=== PATIENT | male | born 1985 | race Caucasian/White ===

== ENCOUNTER 2016-11-22 16:44 | Inpatient (IN) | payer OTHER ==
[2016-11-22 19:09] VITALS: BMI 24.8
--- NOTE | 2016-11-22 20:52 | HP ---
COWS - Scale Resting Pulse: 2= [place] 101-120 Sweatin= Chills/Flushing Restless Observation: 3= Extraneous Movement Pupil Size: 0= Normal to Room Light Bone or Joint Aches: 2= Severe Diffuse Aches Runny Nose/ Eye Tearin= Runny Nose/Eyes GI Upset > 30mins: 2= Nausea/Diarrhea Tremor Observation: 1= Tremor Sie[place], Not Seen Yawning Observation: 1= 1-2x During Session Anxiety or Irritability: 2=Irritable/Anxious Goose Flesh Skin: 3=Piloerection COWS Score: 19 CIWA Score - CIWA Score Nausea/Vomitin-Mild Nausea/No Vomiting Muscle Tremors: 3 Anxiety: 3 Agitation: 3 Paroxysmal Sweats: 3 Orientation: 1-Uncertain about Date Tacttile Disturbances: 0-None Auditory Disturbances: 0-None Visual Disturbances: 0-None Headache: 1-Very Mild CIWA-Ar Total Score: 15 Admission ROS S - HPI Chief Complaint: WITHDRAWAL SYMPTOMS Allergies/Adverse Reactions: Allergies Allergy/AdvReac Type Severity Reaction Status Date / Time Sulfa (Sulfonamide Allergy Intermediate Rash Verified 10/04/16 15:45 Antibiotics) History of Present Illness: 31 Y.O. MAN WITH A 9 YR HISTORY OF DRUG AND ALCOHOL DEPENDENCE IS SEEKING DETOX. HE WAS WAS HERE IN 09/2016 FOR DETOX BUT DID NOT COMPLETE TREATMENT. HE REPORTS HE DOES DOES HAVE A SIGNIFICANT PERIOD OF SOBRIETY. Exam Limitations: No Limitations - Ebola screening Have you traveled outside of the country in the last 21 days: No Have you had contact with anyone from an Ebola affected area: No Have you been sick,other than usual withdrawal symptoms: No Do you have a fever: No - Review of Systems Constitutional: Chills, Diaphoresis, Loss of Appetite, Night Sweats, Changes in sleep, Weakness, Unintentional Wgt. Loss EENT: reports: No Symptoms Reported Respiratory: reports: No Symptoms reported Cardiac: reports: No Symptoms Reported GI: reports: Other (HX CROHNS DISEASE) : reports: No Symptoms Reported Musculoskeletal: reports: Back Pain Integumentary: reports: No Symptoms Reported Neuro: reports: Tremors Endocrine: reports: No Symptoms Reported Hematology: reports: No Symptoms Reported Psychiatric: reports: Depressed Other Systems: Reviewed and Negative Patient History - Patient Medical History Hx Anemia: No Hx Asthma: No Hx Chronic Obstructive Pulmonary Disease (COPD): No Hx Cancer: No Hx Cardiac Disorders: No Hx Congestive Heart Failure: No Hx Hypertension: No Hx Hypercholesterolemia: No Hx Pacemaker: No HX Cerebrovascular Accident: No Hx Seizures: Yes (DRUG WITHDRAWAL SX RELATED) Hx Dementia: No Hx Diabetes: No Hx Gastrointestinal Disorders: Yes (HX CROHN'S DISEASE) Hx Liver Disease: No Hx Genitourinary Disorders: No Hx Sexually Transmitted Disorders: No Hx Renal Disease (ESRD): No Hx Thyroid Disease: No Hx Human Immunodeficiency Virus (HIV): No (negative) Hx Hepatitis C: No (negative) Hx Depression: Yes Hx Suicide Attempt: No (DENIES) Hx Bipolar Disorder: No Hx Schizophrenia: No - Patient Surgical History Past Surgical History: Yes Hx Neurologic Surgery: No Hx Cataract Extraction: No Hx Cardiac Surgery: No Hx Lung Surgery: No Hx Breast Surgery: No Hx Breast Biopsy: No Hx Abdominal Surgery: Yes (BOWEL RESECTION IN 2011 for crohn's disease) Hx Appendectomy: No Hx Cholecystectomy: No Hx Genitourinary Surgery: No Hx Section: No Hx Orthopedic Surgery: Yes (FRACTURED LEFT LEG BONES SEC. TO FALL IN 06/2014) Anesthesia Reaction: No - PPD History Previous Implant?: Yes Documented Results: Negative w/proof Implanted On Prior R Admission?: Yes Date: 02/03/16 Results: 0 mm PPD to be Administered?: No - Smoking Cessation Smoking history: Current every day smoker Have you smoked in the past 12 months: Yes Aproximately how many cigarettes per day: 10 Cigars Per Day: 0 Hx Chewing Tobacco Use: No Initiated information on smoking cessation: Yes 'Breaking Loose' booklet given: 11/22/16 - Substance & Tx. History Hx Alcohol Use: Yes Hx Substance Use: Yes Substance Use Type: Alcohol, Heroin, Tranquilizers Hx Substance Use Treatment: Yes (DETOX AND REHAB ) - Substances Abused Alprazolam (Xanax) Route: Oral Frequency: 3-6 times per week Amount used: 4MG Age of first use: 27 Date of Last Use: 11/21/16 Heroin Route: Injection Frequency: Daily Amount used: 2-3 BUNDLES Age of first use: 29 Date of Last Use: 11/22/16 Alcohol Route: Oral Frequency: 3-6 times per week Amount used: 1 6-PACK Age of first use: 24 Date of Last Use: 11/20/16 Family Disease History - Family Disease History Family Disease History: Diabetes: Grandparent, Heart Disease: Grandparent, Respiratory: Father (STOPPED USING ETOH AND COCAINE), Other: Father Admission Physical Exam [facility] - Vital Signs Vital Signs: Vital Signs - 24 hr 11/22/16 19:03 Temperature 97.6 F Pulse Rate 108 H Respiratory 20 Rate Blood Pressure 126/78 - Physical General Appearance: Yes: Disheveled, Tremorous, Irritable, Sweating, Anxious HEENTM: Yes: Hearing grossly Normal, Normal ENT Inspection, Normocephalic Respiratory: Yes: Chest Non-Tender, Lungs Clear, Normal Breath Sounds Neck: Yes: No masses,lesions,Nodules, Trachea in good position Breast: Yes: Breast Exam Deferred Cardiology: Yes: Regular Rhythm, S1, S2, Tachycardia Abdominal: Yes: Normal Bowel Sounds, Non Tender, Flat, Soft Genitourinary: Yes: Within Normal Limits Back: Yes: Normal Inspection Musculoskeletal: Yes: Back pain, Muscle Pain Extremities: Yes: Normal Capillary Refill, Normal Inspection, Normal Range of Motion, Non-Tender Neurological: Yes: Alert, Normal Mood/Affect, Normal Response Integumentary: Yes: Normal Color, Dry, Warm, Track [place] Lymphatic: Yes: Within Normal Limits - Diagnostic (1) Alcohol dependence with uncomplicated withdrawal Current Visit: Yes Status: Chronic (2) Benzodiazepine dependence Current Visit: Yes Status: Chronic (3) Nicotine dependence Current Visit: Yes Status: Chronic Qualifiers: Nicotine product type: cigarettes Substance use status: uncomplicated Qualified Code(s): F17.210 - Nicotine dependence, cigarettes, uncomplicated (4) Opioid dependence with withdrawal Current Visit: Yes Status: Chronic (5) Crohns disease Current Visit: Yes Status: Chronic Qualifiers: Gastrointestinal tract location: small intestine Digestive disease complication type: unspecified complication Qualified Code(s): K50.019 - Crohn's disease of small intestine with unspecified complications Cleared for Admission [facility] - Detox or Rehab [facility] Level of Care: Medically Managed Detox Regimen/Protocol: Methadone/Valium [facility] Breath Alcohol Content Breath Alcohol Content: 0 Urine Drug Screen - Results Urine Drug Screen Results: THC-Marijuana, OPI-Opiates, BZO-Benzodiazepines
[2016-11-22] MEDS ORDERED: IBUPROFEN 400 MG TABLET (FP) PO PRN (21:03)
[2016-11-22] MEDS ORDERED: ACETAMINOPHEN 325 MG TABLET (FP) PO PRN (21:03)
[2016-11-22] MEDS ORDERED: MAG HYDROX/AL HYDROX/SIMETH 30 ML UNIT-DOSE CUP PO PRN (21:03)
[2016-11-22] MEDS ORDERED: guaiFENesin/D-METHORPHAN HB 10 ML UNIT-DOSE CUPS PO PRN (21:03)
[2016-11-22] MEDS ORDERED: MENTHOL/PHENOL 1 EACH UD MM PRN (21:03)
[2016-11-22] MEDS ORDERED: diazePAM 5 MG TABLET PO ONE (21:03)
[2016-11-22] MEDS ORDERED: METHADONE HCL 10 MG TABLET (FOR DETOX USE ONLY) PO ONE ×2 (21:03→23:00)
[2016-11-22] MEDS ORDERED: MAGNESIUM CITRATE 300 ML BOTTLE PO PRN (21:03)
[2016-11-22] MEDS ORDERED: diazePAM 5 MG TABLET PO PRN (21:03)
[2016-11-22] MEDS ORDERED: LOPERAMIDE HCL 2 MG CAPSULE PO PRN (21:03)
[2016-11-22] MEDS ORDERED: P-EPHED 60MG/TRIPROLIDI 2.5MG TABLET PO PRN (21:03)
[2016-11-22] MEDS ORDERED: MAGNESIUM HYDROX 2400MG/30ML ORAL SUSPENSION 30 ML CUP PO PRN (21:03)
[2016-11-22] MEDS ORDERED: diazePAM 5 MG TABLET PO SCH (22:00)
[2016-11-23] MEDS: diphenhydrAMINE HCL 50 MG CAPSULE PO PRN (00:39)
[2016-11-23] MEDS ORDERED: METHADONE HCL 10 MG TABLET (FOR DETOX USE ONLY) PO ONE ×3 (00:44→23:00)
[2016-11-23] MEDS ORDERED: diazePAM 5 MG TABLET PO ONE (00:44)
[2016-11-23] MEDS: THIAMINE HCL 100 MG TABLET (FP) PO SCH ×2 (00:59→22:07)
[2016-11-23] MEDS: diazePAM 5 MG TABLET PO SCH ×3 (05:38→22:07)
[2016-11-23] MEDS: diazePAM 5 MG TABLET PO PRN ×2 (09:25→17:25)
[2016-11-23] MEDS: PRENATAL VITAMINS W/ FOLIC ACID TABLET (FP) PO SCH (09:26)
[2016-11-23] MEDS: NICOTINE 14 MG/24 HOURS TOPICAL PATCH TD SCH (09:26)
[2016-11-23 09:56] LABS: MCH 21.6 pg (25.7-33.7); MCHC 32.3 g/dl (32.0-35.9); MEAN CELL VOLUME 66.8 fl (80-96); MEAN PLT VOLUME 7.1 fl (7.5-11.1); PLATELET COUNT 295 K/MM3 (134-434); RDW 18.7 % (11.9-15.9); WHITE BLOOD COUNT 8.1 K/mm3 (4.0-10.0)
[2016-11-23] MEDS ORDERED: METHADONE HCL 10 MG TABLET (FOR DETOX USE ONLY) PO SCH (10:00)
[2016-11-23 10:55] LABS: ALK PHOS 65 U/L (45-117); ANION GAP 8 (8-16); BILIRUBIN,TOTAL 0.3 mg/dL (0.2-1.0); CALCIUM 9.1 mg/dL (8.5-10.1); CO2 29 mmol/L (21-32); GLUCOSE,RANDOM 77 mg/dL (74-106); SGOT/AST 9 U/L (15-37); SGPT/ALT 14 U/L (12-78); TOT PROT 6.4 g/dl (6.4-8.2)
--- NOTE | 2016-11-23 11:48 | CONSULT ---
[facility] Psychiatric Consult - Data Date of interview: 11/23/16 Admission source: [facility] Identifying data: Readmission to [facility] for this 31 y/o male seeking detox treatment on for heroin,alcohol and benzodiazepine (xanax ) dependence.Patient is single without children,homeless,unemployed and reportedly deprived of any source of income. Substance Abuse History: - Smoking Cessation. Smoking history: Current every day smoker. Have you smoked in the past 12 months: Yes. Aproximately how many cigarettes per day: 10. Cigars Per Day: 0. Hx Chewing Tobacco Use: No. Initiated information on smoking cessation: Yes. 'Breaking Loose' booklet given : 11/22/16. - Substance & Tx. History. Hx Alcohol Use: Yes. Hx Substance Use : Yes. Substance Use Type: Alcohol, Heroin, Tranquilizers. Hx Substance Use Treatment: Yes (DETOX AND REHAB ). - Substances Abused. Alprazolam (Xanax) . Route: Oral. Frequency: 3-6 times per week. Amount used: 4MG. Age of first use: 27. Date of Last Use: 11/21/16. Heroin. Route: Injection. Frequency: Daily. Amount used: 2-3 BUNDLES. Age of first use: 29. Date of Last Use: 11/22/16. Alcohol. Route: Oral. Frequency: 3-6 times per week. Amount used: 1 6-PACK. Age of first use: 24. Date of Last Use: 11/20/16. Discussed with the patient in this interview.He confirmed this pattern of substance use. Medical History: Crohn's disease,anemia and a history of withdrawal-related seizures. Psychiatric History: Patient denies. Physical/Sexual Abuse/Trauma History: Patient denies. Mental Status Exam - Mental Status Exam Alert and Oriented to: Time, Place, Person Cognitive Function: Good Patient Appearance: Unkempt, Disheveled Mood: Nervous, Withdrawn, Anxious Affect: Mood Congruent Patient Behavior: Fatigued, Appropriate, Cooperative Speech Pattern: Clear Voice Loudness: Normal Thought Process: Goal Oriented Thought Disorder: Not Present Hallucinations: Denies Suicidal Ideation: Denies Homicidal Ideation: Denies Insight/Judgement: Poor Sleep: Poorly Appetite: Fair Muscle strength/Tone: Normal Gait/Station: Normal Psychiatric Findings - Problem List ([place] 1, 2,3) (1) Alcohol dependence with uncomplicated withdrawal Current Visit: Yes Status: Chronic (2) Benzodiazepine dependence Current Visit: Yes Status: Acute (3) Nicotine dependence Current Visit: Yes Status: Acute Qualifiers: Nicotine product type: cigarettes Substance use status: uncomplicated Qualified Code(s): F17.210 - Nicotine dependence, cigarettes, uncomplicated (4) Opioid dependence with withdrawal Current Visit: Yes Status: Acute (5) Drug-induced mood disorder Current Visit: Yes Status: Acute (6) Crohns disease Current Visit: Yes Status: Chronic Qualifiers: Gastrointestinal tract location: small intestine Digestive disease complication type: unspecified complication Qualified Code(s): K50.019 - Crohn's disease of small intestine with unspecified complications (7) History of seizure Current Visit: Yes Status: Chronic (8) Anemia Current Visit: Yes Status: Suspected (9) Substance-induced sleep disorder Current Visit: Yes Status: Chronic - Initial Treatment Plan Initial Treatment Plan: Psychoeducation.Detoxification.Zolpidem 10 mg po hs prn.Patient made aware of risk of parasomnias.He agrees with this plan.Observation.
--- NOTE | 2016-11-23 12:18 | PN ---
[facility] CIWA - CIWA Score Nausea/Vomitin-No Nausea/No Vomiting Muscle Tremors: 4-Moderate,w/Arms Extend Anxiety: 4-Mod. Anxious/Guarded Agitation: 4-Moderately Restless Paroxysmal Sweats: 1-Minimal Palms Moist Orientation: 0-Oriented Tacttile Disturbances: 3-Moderate Itch/Numb/Burn Auditory Disturbances: 0-None Visual Disturbances: 0-None Headache: 0-None Present CIWA-Ar Total Score: 16 S COWS - Scale Resting Pulse: 1= [place] 81-100 Sweatin= Chills/Flushing Restless Observation: 3= Extraneous Movement Pupil Size: 2= Moderately Dilated Bone or Joint Aches: 4=Acute Joint/Muscle Pain Runny Nose/ Eye Tearin= Nasal Congestion GI Upset > 30mins: 1= Stomach Cramp Tremor Observation of Outstretched Hands: 2= Slight Tremor Visible Yawning Observation: 1= 1-2x During Session Anxiety or Irritability: 2=Irritable/Anxious Goose Flesh Skin: 0=Smooth Skin COWS Score: 18 S Progress Note (SOAP) Subjective: ANXIETY,TREMORS,SWEATS,DIARRHEA,"ROUGH SLEEP'. Objective: 11/23/16 12:17 Vital Signs Temperature 97 F L 11/23/16 11:48 Pulse Rate 82 11/23/16 11:48 Respiratory Rate 20 11/23/16 11:48 Blood Pressure 106/66 11/23/16 11:48 O2 Sat by Pulse Oximetry (%) Laboratory Last Values WBC 8.1 K/mm3 (4.0-10.0) D 11/23/16 07:00 RBC 5.07 M/mm3 (4.00-5.60) 11/23/16 07:00 Hgb 11.0 GM/dL (11.7-16.9) L D 11/23/16 07:00 Hct 33.9 % (35.4-49) L D 11/23/16 07:00 MCV 66.8 fl (80-96) L 11/23/16 07:00 MCHC 32.3 g/dl (32.0-35.9) 11/23/16 07:00 RDW 18.7 % (11.9-15.9) H 11/23/16 07:00 Plt Count 295 K/MM3 (134-434) 11/23/16 07:00 MPV 7.1 fl (7.5-11.1) L D 11/23/16 07:00 Sodium 143 mmol/L (136-145) 11/23/16 07:00 Potassium 4.2 mmol/L (3.5-5.1) 11/23/16 07:00 Chloride 106 mmol/L (98-107) 11/23/16 07:00 Carbon Dioxide 29 mmol/L (21-32) D 11/23/16 07:00 Anion Gap 8 (8-16) 11/23/16 07:00 BUN 12 mg/dL (7-18) 11/23/16 07:00 Creatinine 1.0 mg/dL (0.7-1.3) 11/23/16 07:00 Creat Clearance w eGFR > 60 (>60) 11/23/16 07:00 Random Glucose 77 mg/dL (74-106) D 11/23/16 07:00 Calcium 9.1 mg/dL (8.5-10.1) 11/23/16 07:00 Total Bilirubin 0.3 mg/dL (0.2-1.0) D 11/23/16 07:00 AST 9 U/L (15-37) L 11/23/16 07:00 ALT 14 U/L (12-78) 11/23/16 07:00 Alkaline Phosphatase 65 U/L (45-117) 11/23/16 07:00 Total Protein 6.4 g/dl (6.4-8.2) 11/23/16 07:00 Albumin 3.0 g/dl (3.4-5.0) L 11/23/16 07:00 Assessment: 11/23/16 12:17 WITHDRAWAL SX Plan: CONTINUE DETOX IMODI[facility] PRN
[2016-11-23] MEDS: ZOLPIDEM TARTRATE 5 MG TABLET PO PRN (22:07)
--- NOTE | 2016-11-23 23:34 | EKG ---
Test Reason : Blood Pressure : / mmHG Vent. Rate : 075 BPM Atrial Rate : 075 BPM P-R Int : 136 ms QRS Dur : 086 ms QT Int : 384 ms P-R-T Axes : 056 076 059 degrees QTc Int : 428 ms NORMAL SINUS RHYTHM NORMAL ECG WHEN COMPARED WITH ECG OF 04-FEB-2016 13:56, NO SIGNIFICANT CHANGE WAS FOUND Confirmed by KEEGAN LAND MD ([id number]) on 11/23/2016 11:34:14 PM Referred By: Elsie Miller Confirmed By:KEEGAN LAND MD
[2016-11-24] MEDS: diazePAM 5 MG TABLET PO PRN ×4 (00:43→17:01)
[2016-11-24] MEDS: diphenhydrAMINE HCL 50 MG CAPSULE PO PRN (00:43)
[2016-11-24] MEDS: diazePAM 5 MG TABLET PO SCH ×3 (05:50→22:03)
[2016-11-24] MEDS ORDERED: METHADONE HCL 5 MG TABLET (FOR DETOX USE ONLY) PO SCH (10:00)
[2016-11-24] MEDS ORDERED: METHADONE HCL 10 MG TABLET (FOR DETOX USE ONLY) PO SCH (10:00)
[2016-11-24] MEDS ORDERED: diazePAM 5 MG TABLET PO SCH (10:00)
--- NOTE | 2016-11-24 10:19 | PN ---
[facility] CIWA - CIWA Score Nausea/Vomitin-No Nausea/No Vomiting Muscle Tremors: 5 Anxiety: 6 Agitation: 4-Moderately Restless Paroxysmal Sweats: 1-Minimal Palms Moist Orientation: 0-Oriented Tacttile Disturbances: 3-Moderate Itch/Numb/Burn Auditory Disturbances: 0-None Visual Disturbances: 0-None Headache: 0-None Present CIWA-Ar Total Score: 19 S COWS - Scale Resting Pulse: 0= [place] 80 or Below Sweatin= Chills/Flushing Restless Observation: 3= Extraneous Movement Pupil Size: 2= Moderately Dilated Bone or Joint Aches: 4=Acute Joint/Muscle Pain Runny Nose/ Eye Tearin= Nasal Congestion GI Upset > 30mins: 1= Stomach Cramp Tremor Observation of Outstretched Hands: 2= Slight Tremor Visible Yawning Observation: 1= 1-2x During Session Anxiety or Irritability: 2=Irritable/Anxious Goose Flesh Skin: 0=Smooth Skin COWS Score: 17 S Progress Note (SOAP) Subjective: ANXIETY,IRRITABILITY,AGITATION,RESTLESS,INTERMITTENT SLEEP. Objective: 11/24/16 10:16 Vital Signs Temperature 97 F L 11/24/16 09:31 Pulse Rate 80 11/24/16 09:31 Respiratory Rate 19 11/24/16 09:31 Blood Pressure 125/73 11/24/16 09:31 O2 Sat by Pulse Oximetry (%) Laboratory Last Values WBC 8.1 K/mm3 (4.0-10.0) D 11/23/16 07:00 RBC 5.07 M/mm3 (4.00-5.60) 11/23/16 07:00 Hgb 11.0 GM/dL (11.7-16.9) L D 11/23/16 07:00 Hct 33.9 % (35.4-49) L D 11/23/16 07:00 MCV 66.8 fl (80-96) L 11/23/16 07:00 MCHC 32.3 g/dl (32.0-35.9) 11/23/16 07:00 RDW 18.7 % (11.9-15.9) H 11/23/16 07:00 Plt Count 295 K/MM3 (134-434) 11/23/16 07:00 MPV 7.1 fl (7.5-11.1) L D 11/23/16 07:00 Sodium 143 mmol/L (136-145) 11/23/16 07:00 Potassium 4.2 mmol/L (3.5-5.1) 11/23/16 07:00 Chloride 106 mmol/L (98-107) 11/23/16 07:00 Carbon Dioxide 29 mmol/L (21-32) D 11/23/16 07:00 Anion Gap 8 (8-16) 11/23/16 07:00 BUN 12 mg/dL (7-18) 11/23/16 07:00 Creatinine 1.0 mg/dL (0.7-1.3) 11/23/16 07:00 Creat Clearance w eGFR > 60 (>60) 11/23/16 07:00 Random Glucose 77 mg/dL (74-106) D 11/23/16 07:00 Calcium 9.1 mg/dL (8.5-10.1) 11/23/16 07:00 Total Bilirubin 0.3 mg/dL (0.2-1.0) D 11/23/16 07:00 AST 9 U/L (15-37) L 11/23/16 07:00 ALT 14 U/L (12-78) 11/23/16 07:00 Alkaline Phosphatase 65 U/L (45-117) 11/23/16 07:00 Total Protein 6.4 g/dl (6.4-8.2) 11/23/16 07:00 Albumin 3.0 g/dl (3.4-5.0) L 11/23/16 07:00 RPR Titer Nonreactive (NONREACTIVE) 11/23/16 07:00 Hepatitis C Antibody >11.0 s/co ratio (0.0-0.9) H 11/23/16 07:00 LABS NOTED. PT TO F/U WITH HEP C RESULT WITH PMD AFTER DETOX. Assessment: 11/24/16 10:18 WITHDRAWAL SX Plan: CONTINUE DETOX
[2016-11-24] MEDS: NICOTINE 14 MG/24 HOURS TOPICAL PATCH TD SCH (10:21)
[2016-11-24] MEDS: PRENATAL VITAMINS W/ FOLIC ACID TABLET (FP) PO SCH (10:21)
[2016-11-24] MEDS: CYCLOBENZAPRINE HCL 10 MG TABLET (FP) PO SCH ×2 (13:52→22:03)
[2016-11-24 20:40] LABS: URINE APPEARANCE CLEAR; URINE BILIRUBIN NEGATIVE (NEGATIVE); URINE BLOOD NEGATIVE (NEGATIVE); URINE COLOR LTYELLOW; URINE GLUCOSE (UA) NEGATIVE (NEGATIVE); URINE KETONE NEGATIVE (NEGATIVE); URINE LEUK ESTERASE NEGATIVE (NEGATIVE); URINE NITRITE NEGATIVE (NEGATIVE); URINE PROTEIN NEGATIVE (NEGATIVE); URINE UROBILINOGEN NEGATIVE E.U./dl (0.2-1.0)
[2016-11-24] MEDS: THIAMINE HCL 100 MG TABLET (FP) PO SCH (22:02)
[2016-11-24] MEDS: ZOLPIDEM TARTRATE 5 MG TABLET PO PRN (22:03)
[2016-11-25] MEDS: diazePAM 5 MG TABLET PO PRN ×4 (05:32→20:45)
[2016-11-25] MEDS: CYCLOBENZAPRINE HCL 10 MG TABLET (FP) PO SCH ×3 (05:32→22:23)
[2016-11-25] MEDS: diazePAM 5 MG TABLET PO SCH ×2 (10:08→22:23)
[2016-11-25] MEDS: METHADONE HCL 5 MG TABLET (FOR DETOX USE ONLY) PO SCH (10:08)
[2016-11-25] MEDS: NICOTINE 14 MG/24 HOURS TOPICAL PATCH TD SCH (10:09)
[2016-11-25] MEDS: PRENATAL VITAMINS W/ FOLIC ACID TABLET (FP) PO SCH (10:09)
--- NOTE | 2016-11-25 10:15 | PN ---
[facility] Progress Note (SOAP) Subjective: ANXIETY,HOT/COLD CHILLS,DIARRHEA,RUNNY NOSE, MUSCLE ACHES. Objective: 11/25/16 10:15 Vital Signs Temperature 96.0 F L 11/25/16 09:24 Pulse Rate 91 H 11/25/16 09:24 Respiratory Rate 20 11/25/16 09:24 Blood Pressure 111/65 11/25/16 09:24 O2 Sat by Pulse Oximetry (%) Assessment: 11/25/16 10:15 WITHDRAWAL SX Plan: CONTINUE DETOX
[2016-11-25] MEDS: NICOTINE POLACRILEX 2 MG GUM BC PRN (16:44)
[2016-11-25] MEDS: ZOLPIDEM TARTRATE 5 MG TABLET PO PRN (22:23)
[2016-11-25] MEDS: THIAMINE HCL 100 MG TABLET (FP) PO SCH (22:23)
[2016-11-26] MEDS: CYCLOBENZAPRINE HCL 10 MG TABLET (FP) PO SCH ×3 (05:39→22:30)
[2016-11-26] MEDS ORDERED: diazePAM 5 MG TABLET PO SCH (10:00)
[2016-11-26] MEDS ORDERED: METHADONE HCL 10 MG TABLET (FOR DETOX USE ONLY) PO SCH (10:00)
[2016-11-26] MEDS: diazePAM 5 MG TABLET PO SCH ×2 (10:24→22:29)
[2016-11-26] MEDS: METHADONE HCL 5 MG TABLET (FOR DETOX USE ONLY) PO SCH (10:24)
[2016-11-26] MEDS: NICOTINE 14 MG/24 HOURS TOPICAL PATCH TD SCH (10:24)
[2016-11-26] MEDS: PRENATAL VITAMINS W/ FOLIC ACID TABLET (FP) PO SCH (10:24)
--- NOTE | 2016-11-26 10:37 | PN ---
[facility] Progress Note (SOAP) Subjective: Sweating,interrupted sleep,restless. Objective: 11/26/16 10:36 Vital Signs - 8 hr 11/26/16 11/26/16 11/26/16 03:39 06:23 10:11 Temperature 96.1 F L 96.9 F L Pulse Rate 88 105 H Respiratory 18 16 20 Rate Blood Pressure 111/65 98/59 Laboratory Last Values WBC 8.1 K/mm3 (4.0-10.0) D 11/23/16 07:00 RBC 5.07 M/mm3 (4.00-5.60) 11/23/16 07:00 Hgb 11.0 GM/dL (11.7-16.9) L D 11/23/16 07:00 Hct 33.9 % (35.4-49) L D 11/23/16 07:00 MCV 66.8 fl (80-96) L 11/23/16 07:00 MCHC 32.3 g/dl (32.0-35.9) 11/23/16 07:00 RDW 18.7 % (11.9-15.9) H 11/23/16 07:00 Plt Count 295 K/MM3 (134-434) 11/23/16 07:00 MPV 7.1 fl (7.5-11.1) L D 11/23/16 07:00 Sodium 143 mmol/L (136-145) 11/23/16 07:00 Potassium 4.2 mmol/L (3.5-5.1) 11/23/16 07:00 Chloride 106 mmol/L (98-107) 11/23/16 07:00 Carbon Dioxide 29 mmol/L (21-32) D 11/23/16 07:00 Anion Gap 8 (8-16) 11/23/16 07:00 BUN 12 mg/dL (7-18) 11/23/16 07:00 Creatinine 1.0 mg/dL (0.7-1.3) 11/23/16 07:00 Creat Clearance w eGFR > 60 (>60) 11/23/16 07:00 Random Glucose 77 mg/dL (74-106) D 11/23/16 07:00 Calcium 9.1 mg/dL (8.5-10.1) 11/23/16 07:00 Total Bilirubin 0.3 mg/dL (0.2-1.0) D 11/23/16 07:00 AST 9 U/L (15-37) L 11/23/16 07:00 ALT 14 U/L (12-78) 11/23/16 07:00 Alkaline Phosphatase 65 U/L (45-117) 11/23/16 07:00 Total Protein 6.4 g/dl (6.4-8.2) 11/23/16 07:00 Albumin 3.0 g/dl (3.4-5.0) L 11/23/16 07:00 Urine Color Ltyellow 11/24/16 13:25 Urine Appearance Clear 11/24/16 13:25 Urine pH 7.0 (5.0-8.0) 11/24/16 13:25 Ur Specific [place] 1.011 (1.001-1.035) 11/24/16 13:25 Urine Protein Negative (NEGATIVE) 11/24/16 13:25 Urine Glucose (UA) Negative (NEGATIVE) 11/24/16 13:25 Urine Ketones Negative (NEGATIVE) 11/24/16 13:25 Urine Blood Negative (NEGATIVE) 11/24/16 13:25 Urine Nitrite Negative (NEGATIVE) 11/24/16 13:25 Urine Bilirubin Negative (NEGATIVE) 11/24/16 13:25 Urine Urobilinogen Negative E.U./dl (0.2-1.0) 11/24/16 13:25 Ur Leukocyte Esterase Negative (NEGATIVE) 11/24/16 13:25 RPR Titer Nonreactive (NONREACTIVE) 11/23/16 07:00 Hepatitis C Antibody >11.0 s/co ratio (0.0-0.9) H 11/23/16 07:00 labs noted Assessment: 11/26/16 10:37 withdrawal sx. Plan: continue detox
[2016-11-26] MEDS: hydrOXYzine PAMOATE 50 MG CAPSULE (FP) PO PRN (14:33)
[2016-11-26] MEDS: NICOTINE POLACRILEX 2 MG GUM BC PRN (20:14)
[2016-11-26] MEDS: THIAMINE HCL 100 MG TABLET (FP) PO SCH (22:30)
[2016-11-26] MEDS: diphenhydrAMINE HCL 50 MG CAPSULE PO PRN (22:33)
[2016-11-27] MEDS: hydrOXYzine PAMOATE 50 MG CAPSULE (FP) PO PRN ×2 (05:25→17:31)
[2016-11-27] MEDS: CYCLOBENZAPRINE HCL 10 MG TABLET (FP) PO SCH ×3 (05:25→22:23)
[2016-11-27] MEDS ORDERED: METHADONE HCL 5 MG TABLET (FOR DETOX USE ONLY) PO SCH (06:00)
[2016-11-27] MEDS ORDERED: ZOLPIDEM TARTRATE 5 MG TABLET PO PRN (09:55)
--- NOTE | 2016-11-27 09:58 | PN ---
[facility] Progress Note (SOAP) Subjective: nausea, sweats, interrupted sleep, anxiety, tremors, body aches Objective: 11/27/16 09:56 Vital Signs - 8 hr 11/27/16 11/27/16 03:30 06:43 Temperature 96.8 F L Pulse Rate 96 H Respiratory 20 18 Rate Blood Pressure 111/68 Laboratory Tests 11/23/16 11/23/16 11/23/16 07:00 07:00 07:00 WBC 8.1 D RBC 5.07 Hgb 11.0 L D Hct 33.9 L D MCV 66.8 L MCHC 32.3 RDW 18.7 H Plt Count 295 MPV 7.1 L D Sodium 143 Potassium 4.2 Chloride 106 Carbon Dioxide 29 D Anion Gap 8 BUN 12 Creatinine 1.0 Creat Clearance w eGFR > 60 Random Glucose 77 D Calcium 9.1 Total Bilirubin 0.3 D AST 9 L ALT 14 Alkaline Phosphatase 65 Total Protein 6.4 Albumin 3.0 L Urine Color Urine Appearance Urine pH Ur Specific [place] Urine Protein Urine Glucose (UA) Urine Ketones Urine Blood Urine Nitrite Urine Bilirubin Urine Urobilinogen Ur Leukocyte Esterase RPR Titer Nonreactive Hepatitis C Antibody HCV Quantitation HCV Liver Fibrosis Test 11/23/16 11/24/16 11/24/16 07:00 11:15 13:25 WBC RBC Hgb Hct MCV MCHC RDW Plt Count MPV Sodium Potassium Chloride Carbon Dioxide Anion Gap BUN Creatinine Creat Clearance w eGFR Random Glucose Calcium Total Bilirubin AST ALT Alkaline Phosphatase Total Protein Albumin Urine Color Ltyellow Urine Appearance Clear Urine pH 7.0 Ur Specific [place] 1.011 Urine Protein Negative Urine Glucose (UA) Negative Urine Ketones Negative Urine Blood Negative Urine Nitrite Negative Urine Bilirubin Negative Urine Urobilinogen Negative Ur Leukocyte Esterase Negative RPR Titer Hepatitis C Antibody >11.0 H HCV Quantitation Hcv not detected HCV Liver Fibrosis Test TNP Hep c ab +ve, virus undetectable,anemai, hypoalbuminemia Assessment: 11/27/16 09:57 withdrawal sx, malnutrition/liver disease 2/2 substance use Plan: cont detox, fluids, encoruage ambualtion, symptomatic relief of withdrawal
[2016-11-27] MEDS ORDERED: METHADONE HCL 10 MG TABLET (FOR DETOX USE ONLY) PO SCH (10:00)
[2016-11-27] MEDS ORDERED: diazePAM 5 MG TABLET PO SCH (10:00)
[2016-11-27] MEDS: NICOTINE 14 MG/24 HOURS TOPICAL PATCH TD SCH (10:31)
[2016-11-27] MEDS: PRENATAL VITAMINS W/ FOLIC ACID TABLET (FP) PO SCH (10:31)
[2016-11-27] MEDS: cloNIDine HCL 0.1 MG TABLET PO SCH ×2 (11:19→22:21)
[2016-11-27] MEDS: NICOTINE POLACRILEX 2 MG GUM BC PRN ×3 (12:38→22:23)
[2016-11-27] MEDS: NAPROXEN 500 MG TABLET (FP) PO SCH ×2 (13:50→22:23)
[2016-11-27] MEDS: THIAMINE HCL 100 MG TABLET (FP) PO SCH (22:19)
[2016-11-28] MEDS: CYCLOBENZAPRINE HCL 10 MG TABLET (FP) PO SCH ×2 (05:32→13:00)
[2016-11-28] MEDS: hydrOXYzine PAMOATE 50 MG CAPSULE (FP) PO PRN ×2 (05:32→10:26)
[2016-11-28] MEDS ORDERED: METHADONE HCL 5 MG TABLET (FOR DETOX USE ONLY) PO SCH (06:00)
[2016-11-28] MEDS: NICOTINE POLACRILEX 2 MG GUM BC PRN (08:59)
[2016-11-28 09:43] VITALS: BP 108/65; PULSE 102; TEMP 96
[2016-11-28] MEDS: NAPROXEN 500 MG TABLET (FP) PO SCH (10:24)
[2016-11-28] MEDS: cloNIDine HCL 0.1 MG TABLET PO SCH (10:24)
[2016-11-28] MEDS: NICOTINE 14 MG/24 HOURS TOPICAL PATCH TD SCH (10:24)
[2016-11-28] MEDS: PRENATAL VITAMINS W/ FOLIC ACID TABLET (FP) PO SCH (10:24)
--- NOTE | 2016-11-28 15:24 | DS ---
[facility] Detox Discharge Summary Admission Date: 11/22/16 Discharge Date: 11/28/16 - History Present History: Alcohol Dependence, Opioid Dependence, Sedative Dependence Pertinent Past History: Substance related seizure disorder - Physical Exam Results Vital Signs: Vital Signs Temperature 96 F L 11/28/16 09:43 Pulse Rate 102 H 11/28/16 09:43 Respiratory Rate 18 11/28/16 09:43 Blood Pressure 108/65 11/28/16 09:43 O2 Sat by Pulse Oximetry (%) Pertinent Admission Physical Exam Findings: Withdrawal symptoms Laboratory Tests 11/23/16 11/23/16 11/23/16 07:00 07:00 07:00 WBC 8.1 D RBC 5.07 Hgb 11.0 L D Hct 33.9 L D MCV 66.8 L MCHC 32.3 RDW 18.7 H Plt Count 295 MPV 7.1 L D Sodium 143 Potassium 4.2 Chloride 106 Carbon Dioxide 29 D Anion Gap 8 BUN 12 Creatinine 1.0 Creat Clearance w eGFR > 60 Random Glucose 77 D Calcium 9.1 Total Bilirubin 0.3 D AST 9 L ALT 14 Alkaline Phosphatase 65 Total Protein 6.4 Albumin 3.0 L Urine Color Urine Appearance Urine pH Ur Specific [place] Urine Protein Urine Glucose (UA) Urine Ketones Urine Blood Urine Nitrite Urine Bilirubin Urine Urobilinogen Ur Leukocyte Esterase RPR Titer Nonreactive Hepatitis C Antibody HCV Quantitation HCV RNA (PCR) IUs/ml HCV Liver Fibrosis Test 11/23/16 11/24/16 11/24/16 07:00 11:15 13:25 WBC RBC Hgb Hct MCV MCHC RDW Plt Count MPV Sodium Potassium Chloride Carbon Dioxide Anion Gap BUN Creatinine Creat Clearance w eGFR Random Glucose Calcium Total Bilirubin AST ALT Alkaline Phosphatase Total Protein Albumin Urine Color Ltyellow Urine Appearance Clear Urine pH 7.0 Ur Specific [place] 1.011 Urine Protein Negative Urine Glucose (UA) Negative Urine Ketones Negative Urine Blood Negative Urine Nitrite Negative Urine Bilirubin Negative Urine Urobilinogen Negative Ur Leukocyte Esterase Negative RPR Titer Hepatitis C Antibody >11.0 H HCV Quantitation Hcv not detected HCV RNA (PCR) IUs/ml Y HCV Liver Fibrosis Test TNP Labs noted - Treatment Hospital Course: Detox Protocol Followed, Detoxed Safely, Responded well, Discharged Condition Good, Rehab Referral Accepted - Medication Discharge Medications: Ambulatory Orders NK [No Known Home Medication] 11/28/16 - Diagnosis (1) Nicotine dependence Status: Chronic Qualifiers: Nicotine product type: cigarettes Substance use status: uncomplicated Qualified Code(s): F17.210 - Nicotine dependence, cigarettes, uncomplicated (2) Opioid dependence with withdrawal Status: Acute (3) Alcohol dependence with uncomplicated withdrawal Status: Acute (4) Sedative, hypnotic or anxiolytic dependence with withdrawal, uncomplicated Status: Acute - AMA Did Patient Leave Against Medical Advice: No
== END 2016-11-28 13:00 | disposition other institution (70) | DRG 773 ==
LOC: YASAS 16:44 → Y3N 21:57
PROVIDERS: ADMIT Internal Medicine; ATTEND Internal Medicine
PROC: HZ2ZZZZ Detoxification Services for Substance Abuse Treatment (ICD-10-PCS; principal; 2016-11-28)
DX: F11.23 Opioid dependence with withdrawal (principal); F13.230 Sedative, hypnotic or anxiolytic dependence with withdrawal, uncomplicated; F10.230 Alcohol dependence with withdrawal, uncomplicated; F17.210 Nicotine dependence, cigarettes, uncomplicated; F19.24 Other psychoactive substance dependence with psychoactive substance-induced mood disorder; F19.282 Other psychoactive substance dependence with psychoactive substance-induced sleep disorder; K50.019 Crohn's disease of small intestine with unspecified complications; D64.9 Anemia, unspecified; Z86.69 Personal history of other diseases of the nervous system and sense organs
CPT/HCPCS: 36415; 80053; 81003; 85027; 86593; 86803; 87522; 93005; 93010

== ENCOUNTER 2016-11-28 13:20 | Inpatient (IN) | payer OTHER ==
[2016-11-28] MEDS ORDERED: guaiFENesin/D-METHORPHAN HB 10 ML UNIT-DOSE CUPS PO PRN (14:35)
[2016-11-28] MEDS ORDERED: LOPERAMIDE HCL 2 MG CAPSULE PO PRN (14:35)
[2016-11-28] MEDS ORDERED: MENTHOL/PHENOL 1 EACH UD MM PRN (14:35)
[2016-11-28] MEDS ORDERED: IBUPROFEN 400 MG TABLET (FP) PO PRN (14:35)
[2016-11-28] MEDS ORDERED: MAGNESIUM CITRATE 300 ML BOTTLE PO PRN (14:35)
[2016-11-28] MEDS ORDERED: MAG HYDROX/AL HYDROX/SIMETH 30 ML UNIT-DOSE CUP PO PRN (14:35)
[2016-11-28] MEDS ORDERED: MAGNESIUM HYDROX 2400MG/30ML ORAL SUSPENSION 30 ML CUP PO PRN (14:35)
--- NOTE | 2016-11-28 14:53 | HP ---
[facility] Assess/Revision - Admission History Admitted to Rehab from: [facility] [place] Date of Admission to Rehab: 11/28/16 - Findings Detox History & Physical reviewed: Yes Concur with findings: Yes Comments/Additional Findings: FOR REHAB PROTOCOL
[2016-11-28] MEDS: hydrOXYzine PAMOATE 50 MG CAPSULE (FP) PO PRN ×2 (15:33→21:44)
[2016-11-28] MEDS: NICOTINE POLACRILEX 2 MG GUM BUC PRN ×3 (15:33→21:45)
[2016-11-28] MEDS: THIAMINE HCL 100 MG TABLET (FP) PO SCH (21:43)
[2016-11-28] MEDS: CYCLOBENZAPRINE HCL 10 MG TABLET (FP) PO PRN (21:44)
[2016-11-29] MEDS: NICOTINE 21 MG/24 HOURS TOPICAL PATCH TD SCH (10:00)
[2016-11-29] MEDS: CYCLOBENZAPRINE HCL 10 MG TABLET (FP) PO PRN ×2 (10:00→21:31)
[2016-11-29] MEDS: PRENATAL VITAMINS W/ FOLIC ACID TABLET (FP) PO SCH (10:00)
[2016-11-29] MEDS: hydrOXYzine PAMOATE 50 MG CAPSULE (FP) PO PRN ×3 (10:00→18:53)
[2016-11-29] MEDS: NICOTINE POLACRILEX 2 MG GUM BUC PRN ×4 (10:02→21:35)
--- NOTE | 2016-11-29 11:57 | HP ---
Psychiatrist Admission - Data Date of interview: 11/29/16 Admission source: 3N Identifying data: [facility] 31 year old single white male who is unemployed and currently homeless. Medical History: Crohn's disease,anemia and a history of withdrawal-related seizures. Smoes cigarettes 1 ppd. Psychiatric History: Patient reports he was seen by a psychiatrist while on medical floor due to his Crohn's flare up, and was dx as anxiety, reports the psychiatrist recommended Ativan. He continue to c/o feeling anxious and sad, unable to sleep, was on Trazodone in the past. Physical/Sexual Abuse/Trauma History: Denies history of sexual, physical and verbal abuse. Vital Signs: Vital Signs - 24 hr 11/29/16 11/29/16 11/29/16 00:44 03:45 07:07 Temperature 98.0 F Pulse Rate 56 L 67 92 H Respiratory 14 14 18 Rate Blood Pressure 102/55 Allergies/Adverse Reactions: Allergies Allergy/AdvReac Type Severity Reaction Status Date / Time Sulfa (Sulfonamide Allergy Intermediate Rash Verified 11/22/16 21:48 Antibiotics) Date of last physical exam: 11/24/16 Concur with the findings of this exam: Yes - Substance Abuse/Tx History Hx Alcohol Use: Yes (1 6-PACK.) Hx Substance Use: Yes Substance Use Type: Alcohol, Heroin (2=3 bundles injecting), Tranquilizers (4 mg daily , Xanax) Hx Substance Use Treatment: Yes (several detox) - Admission Criteria Previous failed treatment: Yes Poor recovery environment: Yes Comorbidities: Yes Lacks judgement: Yes Mental Status Exam - Mental Status Exam Alert and Oriented to: Time, Place, Person Cognitive Function: Grossly Intact Patient Appearance: Unkempt Mood: Sad, Anxious Affect: Appropriate, Mood Congruent Patient Behavior: Appropriate, Cooperative Speech Pattern: Clear, Appropriate Voice Loudness: Normal Thought Process: Goal Oriented Thought Disorder: Not Present Hallucinations: Denies Suicidal Ideation: Denies Homicidal Ideation: Denies Insight/Judgement: Fair Sleep: Poorly, Difficulty falling asleep Appetite: Fair Muscle strength/Tone: Normal Gait/Station: Normal Psychiatric Findings - Problem List ([place] 1, 2,3) (1) Benzodiazepine dependence Current Visit: No Status: Acute (2) Opioid dependence Current Visit: Yes Status: Acute (3) Alcohol dependence Current Visit: Yes Status: Acute - Initial Treatment Plan Initial Treatment Plan: discussed indications/properties of Buspar/Remeron with the patient he is willing to start med, will add med andcontinue to monitor progress.
--- NOTE | 2016-11-29 12:16 | PN ---
[facility] Progress Note Note: low back pain,herniated disc,crohn's disease, hepatitis c >11.0 lidoderm patch nutrition support patient will follow up with pmd and gi specialist at [facility] for evaluation and treatment upon discharge
[2016-11-29] MEDS: busPIRone HCL 5 MG TABLET PO SCH ×2 (14:10→21:31)
[2016-11-29] MEDS: LIDOCAINE 5% TOPICAL PATCH TP SCH (14:10)
[2016-11-29] MEDS: THIAMINE HCL 100 MG TABLET (FP) PO SCH (21:31)
[2016-11-29] MEDS: MIRTAZAPINE 15 MG TABLET (FP) PO SCH (21:31)
[2016-11-29] MEDS: diphenhydrAMINE HCL 50 MG CAPSULE PO PRN (21:32)
[2016-11-29] MEDS: HYDROCORTISONE 1% TOPICAL CREAM 30 GM TUBE TP SCH (21:33)
[2016-11-29] MEDS: ACETAMINOPHEN 325 MG TABLET (FP) PO PRN (21:34)
[2016-11-30] MEDS: busPIRone HCL 5 MG TABLET PO SCH ×3 (06:26→21:19)
[2016-11-30] MEDS: P-EPHED 60MG/TRIPROLIDI 2.5MG TABLET PO PRN (09:54)
[2016-11-30] MEDS: ACETAMINOPHEN 325 MG TABLET (FP) PO PRN ×3 (09:54→21:21)
[2016-11-30] MEDS: LIDOCAINE 5% TOPICAL PATCH TP SCH (09:55)
[2016-11-30] MEDS: NICOTINE 21 MG/24 HOURS TOPICAL PATCH TD SCH (09:55)
[2016-11-30] MEDS: PRENATAL VITAMINS W/ FOLIC ACID TABLET (FP) PO SCH (09:55)
[2016-11-30] MEDS: hydrOXYzine PAMOATE 50 MG CAPSULE (FP) PO PRN ×3 (09:57→21:19)
[2016-11-30] MEDS: CYCLOBENZAPRINE HCL 10 MG TABLET (FP) PO PRN ×2 (09:57→21:19)
[2016-11-30] MEDS: HYDROCORTISONE 1% TOPICAL CREAM 30 GM TUBE TP SCH ×2 (09:59→21:18)
[2016-11-30] MEDS ORDERED: AZITHROMYCIN 250 MG TABLET (FP) PO ONE (12:20)
--- NOTE | 2016-11-30 12:22 | PN ---
[facility] Progress Note Note: congested,coughing up yellow mucous, lung clear acute bronchitis to start on zithromax 500 mg po now then zithromax 250 mgs po daily for 4 more doses
[2016-11-30] MEDS: NICOTINE POLACRILEX 2 MG GUM BUC PRN ×3 (14:07→21:22)
[2016-11-30] MEDS: THIAMINE HCL 100 MG TABLET (FP) PO SCH (21:19)
[2016-11-30] MEDS: MIRTAZAPINE 15 MG TABLET (FP) PO SCH (21:19)
[2016-11-30] MEDS: diphenhydrAMINE HCL 50 MG CAPSULE PO PRN (23:27)
[2016-12-01] MEDS: busPIRone HCL 5 MG TABLET PO SCH ×3 (06:35→21:13)
[2016-12-01] MEDS: P-EPHED 60MG/TRIPROLIDI 2.5MG TABLET PO PRN (09:56)
[2016-12-01] MEDS: ACETAMINOPHEN 325 MG TABLET (FP) PO PRN (09:56)
[2016-12-01] MEDS: CYCLOBENZAPRINE HCL 10 MG TABLET (FP) PO PRN (09:56)
[2016-12-01] MEDS: PRENATAL VITAMINS W/ FOLIC ACID TABLET (FP) PO SCH (09:56)
[2016-12-01] MEDS: AZITHROMYCIN 250 MG TABLET (FP) PO SCH (09:56)
[2016-12-01] MEDS: hydrOXYzine PAMOATE 50 MG CAPSULE (FP) PO PRN ×3 (09:56→18:49)
[2016-12-01] MEDS: LIDOCAINE 5% TOPICAL PATCH TP SCH (09:57)
[2016-12-01] MEDS: HYDROCORTISONE 1% TOPICAL CREAM 30 GM TUBE TP SCH ×2 (09:57→21:15)
[2016-12-01] MEDS: NICOTINE 21 MG/24 HOURS TOPICAL PATCH TD SCH (09:58)
[2016-12-01] MEDS: NICOTINE POLACRILEX 2 MG GUM BUC PRN ×4 (09:58→21:16)
[2016-12-01] MEDS ORDERED: COLLOIDAL OATMEAL 1 BAR EACH TP PRN (19:19)
[2016-12-01] MEDS: GABAPENTIN 100 MG CAPSULE (FP) PO SCH (21:13)
[2016-12-01] MEDS: THIAMINE HCL 100 MG TABLET (FP) PO SCH (21:13)
[2016-12-01] MEDS: diphenhydrAMINE HCL 50 MG CAPSULE PO PRN (21:13)
[2016-12-01] MEDS: MIRTAZAPINE 15 MG TABLET (FP) PO SCH (21:13)
[2016-12-02] MEDS: busPIRone HCL 5 MG TABLET PO SCH ×3 (06:04→21:07)
[2016-12-02] MEDS: PRENATAL VITAMINS W/ FOLIC ACID TABLET (FP) PO SCH (09:24)
[2016-12-02] MEDS: LIDOCAINE 5% TOPICAL PATCH TP SCH (09:25)
[2016-12-02] MEDS: GABAPENTIN 100 MG CAPSULE (FP) PO SCH ×2 (09:26→21:07)
[2016-12-02] MEDS: AZITHROMYCIN 250 MG TABLET (FP) PO SCH (09:26)
[2016-12-02] MEDS: CYCLOBENZAPRINE HCL 10 MG TABLET (FP) PO PRN ×2 (09:28→21:07)
[2016-12-02] MEDS: hydrOXYzine PAMOATE 50 MG CAPSULE (FP) PO PRN ×3 (09:28→18:47)
[2016-12-02] MEDS: NICOTINE 21 MG/24 HOURS TOPICAL PATCH TD SCH (09:28)
[2016-12-02] MEDS: HYDROCORTISONE 1% TOPICAL CREAM 30 GM TUBE TP SCH ×2 (09:30→21:07)
[2016-12-02] MEDS: NICOTINE POLACRILEX 2 MG GUM BUC PRN ×3 (10:54→21:08)
[2016-12-02] MEDS: ACETAMINOPHEN 325 MG TABLET (FP) PO PRN ×2 (12:07→23:32)
[2016-12-02] MEDS: diphenhydrAMINE HCL 50 MG CAPSULE PO PRN ×2 (21:07→23:31)
[2016-12-02] MEDS: MIRTAZAPINE 15 MG TABLET (FP) PO SCH (21:07)
[2016-12-02] MEDS: THIAMINE HCL 100 MG TABLET (FP) PO SCH (21:07)
[2016-12-03] MEDS: busPIRone HCL 5 MG TABLET PO SCH ×3 (06:14→21:27)
[2016-12-03] MEDS: GABAPENTIN 100 MG CAPSULE (FP) PO SCH (09:33)
[2016-12-03] MEDS: AZITHROMYCIN 250 MG TABLET (FP) PO SCH (09:33)
[2016-12-03] MEDS: NICOTINE 21 MG/24 HOURS TOPICAL PATCH TD SCH (09:34)
[2016-12-03] MEDS: LIDOCAINE 5% TOPICAL PATCH TP SCH (09:34)
[2016-12-03] MEDS: PRENATAL VITAMINS W/ FOLIC ACID TABLET (FP) PO SCH (09:35)
[2016-12-03] MEDS: HYDROCORTISONE 1% TOPICAL CREAM 30 GM TUBE TP SCH ×2 (09:35→21:29)
[2016-12-03] MEDS: hydrOXYzine PAMOATE 50 MG CAPSULE (FP) PO PRN ×3 (09:38→21:28)
[2016-12-03] MEDS: CYCLOBENZAPRINE HCL 10 MG TABLET (FP) PO PRN ×2 (09:38→21:27)
[2016-12-03] MEDS: NICOTINE POLACRILEX 2 MG GUM BUC PRN ×3 (10:14→23:28)
--- NOTE | 2016-12-03 11:48 | PN ---
S Progress Note Note: HISTORY OF LOW BACK PAIN,SCIATICA,ON NEURONTIN 300 MGS PO BID,WILL GIVE NEURONTIN 300 MGS PO BID
[2016-12-03] MEDS: THIAMINE HCL 100 MG TABLET (FP) PO SCH (21:27)
[2016-12-03] MEDS: GABAPENTIN 300 MG CAPSULE (FP) PO SCH (21:27)
[2016-12-03] MEDS: MIRTAZAPINE 15 MG TABLET (FP) PO SCH (21:27)
[2016-12-04] MEDS: busPIRone HCL 5 MG TABLET PO SCH ×3 (06:03→21:04)
[2016-12-04] MEDS: AZITHROMYCIN 250 MG TABLET (FP) PO SCH (10:24)
[2016-12-04] MEDS: LIDOCAINE 5% TOPICAL PATCH TP SCH (10:24)
[2016-12-04] MEDS: HYDROCORTISONE 1% TOPICAL CREAM 30 GM TUBE TP SCH ×2 (10:24→21:04)
[2016-12-04] MEDS: PRENATAL VITAMINS W/ FOLIC ACID TABLET (FP) PO SCH (10:24)
[2016-12-04] MEDS: GABAPENTIN 300 MG CAPSULE (FP) PO SCH ×2 (10:24→21:04)
[2016-12-04] MEDS: NICOTINE 21 MG/24 HOURS TOPICAL PATCH TD SCH (10:25)
[2016-12-04] MEDS: CYCLOBENZAPRINE HCL 10 MG TABLET (FP) PO PRN ×2 (10:26→21:05)
[2016-12-04] MEDS: hydrOXYzine PAMOATE 50 MG CAPSULE (FP) PO PRN ×2 (10:26→17:38)
[2016-12-04] MEDS: NICOTINE POLACRILEX 2 MG GUM BUC PRN ×3 (11:10→21:54)
[2016-12-04] MEDS: ACETAMINOPHEN 325 MG TABLET (FP) PO PRN (17:38)
[2016-12-04] MEDS: MIRTAZAPINE 15 MG TABLET (FP) PO SCH (21:06)
[2016-12-04] MEDS: diphenhydrAMINE HCL 50 MG CAPSULE PO PRN (21:06)
[2016-12-04] MEDS: THIAMINE HCL 100 MG TABLET (FP) PO SCH (21:46)
[2016-12-05] MEDS: busPIRone HCL 5 MG TABLET PO SCH ×3 (06:52→21:15)
[2016-12-05] MEDS: hydrOXYzine PAMOATE 50 MG CAPSULE (FP) PO PRN ×2 (10:20→17:38)
[2016-12-05] MEDS: GABAPENTIN 300 MG CAPSULE (FP) PO SCH ×2 (10:20→21:15)
[2016-12-05] MEDS: CYCLOBENZAPRINE HCL 10 MG TABLET (FP) PO PRN ×2 (10:20→21:17)
[2016-12-05] MEDS: LIDOCAINE 5% TOPICAL PATCH TP SCH (10:20)
[2016-12-05] MEDS: PRENATAL VITAMINS W/ FOLIC ACID TABLET (FP) PO SCH (10:20)
[2016-12-05] MEDS: HYDROCORTISONE 1% TOPICAL CREAM 30 GM TUBE TP SCH ×2 (10:21→21:16)
[2016-12-05] MEDS: NICOTINE 21 MG/24 HOURS TOPICAL PATCH TD SCH (10:21)
[2016-12-05] MEDS: NICOTINE POLACRILEX 2 MG GUM BUC PRN ×2 (17:39→21:57)
[2016-12-05] MEDS: MIRTAZAPINE 15 MG TABLET (FP) PO SCH (21:15)
[2016-12-05] MEDS: THIAMINE HCL 100 MG TABLET (FP) PO SCH (21:17)
[2016-12-05] MEDS: diphenhydrAMINE HCL 50 MG CAPSULE PO PRN (21:17)
[2016-12-06] MEDS: busPIRone HCL 5 MG TABLET PO SCH ×3 (06:16→21:16)
[2016-12-06] MEDS: GABAPENTIN 300 MG CAPSULE (FP) PO SCH ×2 (09:51→21:15)
[2016-12-06] MEDS: hydrOXYzine PAMOATE 50 MG CAPSULE (FP) PO PRN ×2 (09:51→18:19)
[2016-12-06] MEDS: CYCLOBENZAPRINE HCL 10 MG TABLET (FP) PO PRN ×2 (09:51→21:16)
[2016-12-06] MEDS: LIDOCAINE 5% TOPICAL PATCH TP SCH (09:51)
[2016-12-06] MEDS: HYDROCORTISONE 1% TOPICAL CREAM 30 GM TUBE TP SCH ×2 (09:51→21:15)
[2016-12-06] MEDS: NICOTINE 21 MG/24 HOURS TOPICAL PATCH TD SCH (09:52)
[2016-12-06] MEDS: PRENATAL VITAMINS W/ FOLIC ACID TABLET (FP) PO SCH (09:52)
--- NOTE | 2016-12-06 15:32 | PN ---
Psychiatric Progress Note Vital Signs: Vital Signs Period Temp Pulse Resp BP Sys/Lal Pulse Ox Last 24 Hr 97.3 F 72 18-18 110/70 Date of Session: 12/06/16 Chief Complaint:: insomnia HPI: Patient is addressing alcohol, benzo, opioid dependence comorbid MAGDIEL and drug induced mood disorder. Current Medications: Active Medications Generic Name Dose Route Start Last Admin Trade Name Freq PRN Reason Stop Dose Admin Acetaminophen 650 mg 11/28/16 14:35 12/04/16 17:38 Tylenol - PO 650 mg Q4H PRN Administration FEVER OR PAIN Al Hydroxide/Mg Hydroxide 30 ml 11/28/16 14:35 Mylanta Oral Suspension - PO Q6H PRN DYSPEPSIA Buspirone HCl 5 mg 11/29/16 14:00 12/06/16 14:52 Buspar - PO 5 mg TID ELENA Administration Colloidal Oatmeal 1 applic 12/01/16 19:19 12/01/16 21:15 Aveeno Soap - TP 1 bar DAILY PRN Administration HYGEINE Cyclobenzaprine HCl 10 mg 11/28/16 14:37 12/06/16 09:51 Flexeril - PO 10 mg TID PRN Administration MUSCLE SPASMS Diphenhydramine HCl 50 mg 11/28/16 14:35 12/05/16 21:17 Benadryl - PO 50 mg HSMR1 PRN Administration FOR ITCHING Eucalyptus/Menthol/Phenol/Sorbitol 1 each 11/28/16 14:35 Cepastat Lozenge - MM Q4H PRN SORE THROAT Gabapentin 300 mg 12/03/16 22:00 12/06/16 09:51 Neurontin - PO 300 mg BID ELENA Administration Guaifenesin 10 ml 11/28/16 14:35 12/01/16 10:01 Robitussin Dm - PO 10 ml Q6H PRN Administration COUGH Hydrocortisone 1 applic 11/29/16 22:00 12/06/16 09:51 Hytone 1% Cream - TP Not Given BID ELENA Hydroxyzine Pamoate 50 mg 11/28/16 14:35 12/06/16 09:51 Vistaril - PO 50 mg Q4H PRN Administration AGITATION Ibuprofen 400 mg 11/28/16 14:35 Motrin - PO Q6H PRN PAIN Lidocaine 1 patch 11/29/16 12:15 12/06/16 09:51 Lidoderm Patch - TP 1 patch DAILY ELENA Administration Loperamide HCl 4 mg 11/28/16 14:35 Imodium - PO Q6H PRN DIARRHEA Magnesium Hydroxide 30 ml 11/28/16 14:35 Milk Of Magnesia - PO DAILY PRN CONSTIPATION Nicotine 21 mg 11/29/16 10:00 12/06/16 09:52 Nicoderm Patch - TD 21 mg DAILY ELENA Administration Nicotine Polacrilex 2 mg 11/28/16 14:53 12/05/16 21:57 Nicorette Gum - BUC 2 mg Q2H PRN Administration NICOTINE REPLACEMENT RX Multivit/Folic Acid/Iron 1 tab 11/29/16 10:00 12/06/16 09:52 Vitamins (Sjr) - PO 1 tab DAILY ELENA Administration Pseudoephedrine/Triprolidine 1 combo 11/28/16 14:35 12/01/16 09:56 Actifed - PO 1 combo TID PRN Administration NASAL CONGESTION Quetiapine Fumarate 25 mg 12/06/16 22:00 Seroquel - PO HS ELENA Selenium Sulfide 1 applic 12/07/16 10:00 Selsun 2.5% Lotion - TP 12/13/16 12:56 DAILY ELENA Thiamine HCl 100 mg 11/28/16 22:00 12/05/16 21:17 Vitamin B1 - PO 100 mg HS ELENA Administration Current Side Effect: No Lab tests ordered: No Lab tests reviewed: Yes Provider note:: Patient reports has been feeling less anxious during the day, feels that Buspar effective, he still having difficulty at nights, thinks that Remeron not effective, recalls that Seroquel 25 mg po hs was effective. Will d/ c Remeron, add Seroquel 25 mg po hs, continue to monitor progress. Total face to face time:: 15 Mental Status Exam - Mental Status Exam Alert and Oriented to: Time, Place, Person Cognitive Function: Grossly Intact Patient Appearance: Well Groomed Mood: Hopeful Affect: Appropriate, Mood Congruent Patient Behavior: Appropriate, Cooperative Speech Pattern: Clear, Appropriate Voice Loudness: Normal Thought Process: Intact, Goal Oriented Thought Disorder: Not Present Hallucinations: Denies Suicidal Ideation: Denies Homicidal Ideation: Denies Insight/Judgement: Fair Sleep: Poorly, Difficulty falling asleep Appetite: Fair Muscle strength/Tone: Normal Gait/Station: Normal Psychiatric Treatment Plan - Problem List (1) Benzodiazepine dependence Current Visit: No (2) Opioid dependence Current Visit: Yes (3) Alcohol dependence Current Visit: Yes (4) Drug-induced mood disorder Current Visit: No (5) MAGDIEL (generalized anxiety disorder) Current Visit: Yes
[2016-12-06] MEDS: NICOTINE POLACRILEX 2 MG GUM BUC PRN ×2 (18:20→21:16)
[2016-12-06] MEDS: QUEtiapine FUMARATE 25 MG TABLET (FP) PO SCH (21:15)
[2016-12-06] MEDS: THIAMINE HCL 100 MG TABLET (FP) PO SCH (21:16)
[2016-12-07] MEDS: busPIRone HCL 5 MG TABLET PO SCH ×3 (06:07→21:04)
[2016-12-07] MEDS: PRENATAL VITAMINS W/ FOLIC ACID TABLET (FP) PO SCH (09:51)
[2016-12-07] MEDS: hydrOXYzine PAMOATE 50 MG CAPSULE (FP) PO PRN ×3 (09:51→21:04)
[2016-12-07] MEDS: CYCLOBENZAPRINE HCL 10 MG TABLET (FP) PO PRN ×2 (09:51→21:04)
[2016-12-07] MEDS: GABAPENTIN 300 MG CAPSULE (FP) PO SCH ×2 (09:51→21:04)
[2016-12-07] MEDS: LIDOCAINE 5% TOPICAL PATCH TP SCH (09:52)
[2016-12-07] MEDS: NICOTINE 21 MG/24 HOURS TOPICAL PATCH TD SCH (09:53)
[2016-12-07] MEDS: HYDROCORTISONE 1% TOPICAL CREAM 30 GM TUBE TP SCH ×2 (09:53→21:04)
[2016-12-07] MEDS: SELENIUM SULFIDE 2.5% LOTION 4 OZ. TP SCH (09:54)
[2016-12-07] MEDS: NICOTINE POLACRILEX 2 MG GUM BUC PRN (12:39)
[2016-12-07] MEDS: QUEtiapine FUMARATE 25 MG TABLET (FP) PO SCH (21:04)
[2016-12-07] MEDS: THIAMINE HCL 100 MG TABLET (FP) PO SCH (21:04)
[2016-12-08] MEDS: busPIRone HCL 5 MG TABLET PO SCH ×3 (06:14→21:19)
[2016-12-08] MEDS: hydrOXYzine PAMOATE 50 MG CAPSULE (FP) PO PRN ×2 (09:31→21:19)
[2016-12-08] MEDS: CYCLOBENZAPRINE HCL 10 MG TABLET (FP) PO PRN ×2 (09:31→21:19)
[2016-12-08] MEDS: GABAPENTIN 300 MG CAPSULE (FP) PO SCH ×2 (09:31→21:19)
[2016-12-08] MEDS: PRENATAL VITAMINS W/ FOLIC ACID TABLET (FP) PO SCH (09:31)
[2016-12-08] MEDS: NICOTINE 14 MG/24 HOURS TOPICAL PATCH TD SCH (09:32)
[2016-12-08] MEDS: LIDOCAINE 5% TOPICAL PATCH TP SCH (09:33)
[2016-12-08] MEDS: HYDROCORTISONE 1% TOPICAL CREAM 30 GM TUBE TP SCH ×2 (09:33→21:19)
[2016-12-08] MEDS: SELENIUM SULFIDE 2.5% LOTION 4 OZ. TP SCH (10:06)
[2016-12-08] MEDS: NICOTINE POLACRILEX 2 MG GUM BUC PRN ×2 (10:08→21:20)
[2016-12-08] MEDS: ACETAMINOPHEN 325 MG TABLET (FP) PO PRN (21:19)
[2016-12-08] MEDS: QUEtiapine FUMARATE 25 MG TABLET (FP) PO SCH (21:19)
[2016-12-08] MEDS: THIAMINE HCL 100 MG TABLET (FP) PO SCH (21:19)
[2016-12-09] MEDS: busPIRone HCL 5 MG TABLET PO SCH ×3 (06:08→21:08)
[2016-12-09] MEDS: hydrOXYzine PAMOATE 50 MG CAPSULE (FP) PO PRN ×2 (09:31→21:08)
[2016-12-09] MEDS: PRENATAL VITAMINS W/ FOLIC ACID TABLET (FP) PO SCH (09:31)
[2016-12-09] MEDS: CYCLOBENZAPRINE HCL 10 MG TABLET (FP) PO PRN ×2 (09:31→21:09)
[2016-12-09] MEDS: LIDOCAINE 5% TOPICAL PATCH TP SCH (09:32)
[2016-12-09] MEDS: GABAPENTIN 300 MG CAPSULE (FP) PO SCH ×2 (09:35→21:08)
[2016-12-09] MEDS: SELENIUM SULFIDE 2.5% LOTION 4 OZ. TP SCH (09:37)
[2016-12-09] MEDS: HYDROCORTISONE 1% TOPICAL CREAM 30 GM TUBE TP SCH ×2 (09:37→21:09)
[2016-12-09] MEDS: NICOTINE 14 MG/24 HOURS TOPICAL PATCH TD SCH (09:38)
[2016-12-09] MEDS: NICOTINE POLACRILEX 2 MG GUM BUC PRN (14:08)
--- NOTE | 2016-12-09 15:05 | PN ---
[facility] Progress Note Note: Pt c/o not sleeping racing thoughts, will increase seroquel 50 mg po hs.
[2016-12-09] MEDS: QUEtiapine FUMARATE 50 MG TABLET PO SCH (21:08)
[2016-12-09] MEDS: THIAMINE HCL 100 MG TABLET (FP) PO SCH (21:09)
[2016-12-10] MEDS: busPIRone HCL 5 MG TABLET PO SCH ×3 (06:03→21:11)
[2016-12-10] MEDS: CYCLOBENZAPRINE HCL 10 MG TABLET (FP) PO PRN ×2 (09:38→21:12)
[2016-12-10] MEDS: hydrOXYzine PAMOATE 50 MG CAPSULE (FP) PO PRN ×2 (09:38→21:11)
[2016-12-10] MEDS: GABAPENTIN 300 MG CAPSULE (FP) PO SCH ×2 (09:38→21:11)
[2016-12-10] MEDS: PRENATAL VITAMINS W/ FOLIC ACID TABLET (FP) PO SCH (09:38)
[2016-12-10] MEDS: LIDOCAINE 5% TOPICAL PATCH TP SCH (09:39)
[2016-12-10] MEDS: HYDROCORTISONE 1% TOPICAL CREAM 30 GM TUBE TP SCH ×2 (09:40→21:12)
[2016-12-10] MEDS: SELENIUM SULFIDE 2.5% LOTION 4 OZ. TP SCH (09:40)
[2016-12-10] MEDS: NICOTINE 14 MG/24 HOURS TOPICAL PATCH TD SCH (09:41)
[2016-12-10] MEDS: NICOTINE POLACRILEX 2 MG GUM BUC PRN (17:49)
[2016-12-10] MEDS: QUEtiapine FUMARATE 50 MG TABLET PO SCH (21:11)
[2016-12-10] MEDS: THIAMINE HCL 100 MG TABLET (FP) PO SCH (21:12)
[2016-12-11] MEDS: busPIRone HCL 5 MG TABLET PO SCH ×3 (06:16→21:09)
[2016-12-11] MEDS: GABAPENTIN 300 MG CAPSULE (FP) PO SCH ×2 (09:33→21:09)
[2016-12-11] MEDS: HYDROCORTISONE 1% TOPICAL CREAM 30 GM TUBE TP SCH ×2 (09:34→21:10)
[2016-12-11] MEDS: hydrOXYzine PAMOATE 50 MG CAPSULE (FP) PO PRN ×2 (09:34→17:18)
[2016-12-11] MEDS: SELENIUM SULFIDE 2.5% LOTION 4 OZ. TP SCH (09:34)
[2016-12-11] MEDS: PRENATAL VITAMINS W/ FOLIC ACID TABLET (FP) PO SCH (09:34)
[2016-12-11] MEDS: NICOTINE 14 MG/24 HOURS TOPICAL PATCH TD SCH (09:34)
[2016-12-11] MEDS: LIDOCAINE 5% TOPICAL PATCH TP SCH (09:36)
[2016-12-11] MEDS: CYCLOBENZAPRINE HCL 10 MG TABLET (FP) PO PRN ×2 (09:36→21:09)
[2016-12-11] MEDS: NICOTINE POLACRILEX 2 MG GUM BUC PRN (14:10)
[2016-12-11] MEDS: THIAMINE HCL 100 MG TABLET (FP) PO SCH (21:09)
[2016-12-11] MEDS: QUEtiapine FUMARATE 50 MG TABLET PO SCH (21:09)
[2016-12-12] MEDS: busPIRone HCL 5 MG TABLET PO SCH ×3 (06:26→21:07)
[2016-12-12] MEDS: ACETAMINOPHEN 325 MG TABLET (FP) PO PRN ×2 (06:54→18:21)
[2016-12-12] MEDS: GABAPENTIN 300 MG CAPSULE (FP) PO SCH ×2 (10:32→21:08)
[2016-12-12] MEDS: LIDOCAINE 5% TOPICAL PATCH TP SCH (10:32)
[2016-12-12] MEDS: PRENATAL VITAMINS W/ FOLIC ACID TABLET (FP) PO SCH (10:32)
[2016-12-12] MEDS: CYCLOBENZAPRINE HCL 10 MG TABLET (FP) PO PRN ×2 (10:32→21:07)
[2016-12-12] MEDS: hydrOXYzine PAMOATE 50 MG CAPSULE (FP) PO PRN ×2 (10:32→18:21)
[2016-12-12] MEDS: NICOTINE 14 MG/24 HOURS TOPICAL PATCH TD SCH (10:32)
[2016-12-12] MEDS: HYDROCORTISONE 1% TOPICAL CREAM 30 GM TUBE TP SCH ×2 (10:33→21:08)
[2016-12-12] MEDS: SELENIUM SULFIDE 2.5% LOTION 4 OZ. TP SCH (10:33)
[2016-12-12] MEDS: NICOTINE POLACRILEX 2 MG GUM BUC PRN (15:34)
[2016-12-12] MEDS: THIAMINE HCL 100 MG TABLET (FP) PO SCH (21:07)
[2016-12-12] MEDS: QUEtiapine FUMARATE 50 MG TABLET PO SCH (21:07)
[2016-12-13] MEDS: busPIRone HCL 5 MG TABLET PO SCH ×3 (06:10→21:14)
[2016-12-13] MEDS: PRENATAL VITAMINS W/ FOLIC ACID TABLET (FP) PO SCH (10:04)
[2016-12-13] MEDS: LIDOCAINE 5% TOPICAL PATCH TP SCH (10:04)
[2016-12-13] MEDS: GABAPENTIN 300 MG CAPSULE (FP) PO SCH ×2 (10:04→21:15)
[2016-12-13] MEDS: NICOTINE 14 MG/24 HOURS TOPICAL PATCH TD SCH (10:05)
[2016-12-13] MEDS: HYDROCORTISONE 1% TOPICAL CREAM 30 GM TUBE TP SCH ×2 (10:05→21:16)
[2016-12-13] MEDS: SELENIUM SULFIDE 2.5% LOTION 4 OZ. TP SCH (10:06)
[2016-12-13] MEDS: hydrOXYzine PAMOATE 50 MG CAPSULE (FP) PO PRN ×2 (10:08→21:15)
[2016-12-13] MEDS: CYCLOBENZAPRINE HCL 10 MG TABLET (FP) PO PRN ×2 (10:08→21:14)
[2016-12-13] MEDS: NICOTINE POLACRILEX 2 MG GUM BUC PRN (14:20)
--- NOTE | 2016-12-13 20:29 | PN ---
Psychiatric Progress Note Vital Signs: Vital Signs Period Temp Pulse Resp BP Sys/Lal Pulse Ox Last 24 Hr 97.5 F 89 18-18 127/76 Date of Session: 12/14/16 Chief Complaint:: Psychiatrist Discharge Note HPI: Patient addressing Alcohol, Opoid and Sedative Dependence comorbid with Nicotine Dependence, Substance-Induced Mood Disorder and Substance-Induced Sleep Disorder. ROS: Crohn's Disease, Anemia and Substace-related seizure Current Medications: Active Medications Generic Name Dose Route Start Last Admin Trade Name Freq PRN Reason Stop Dose Admin Acetaminophen 650 mg 11/28/16 14:35 12/12/16 18:21 Tylenol - PO 650 mg Q4H PRN Administration FEVER OR PAIN Al Hydroxide/Mg Hydroxide 30 ml 11/28/16 14:35 Mylanta Oral Suspension - PO Q6H PRN DYSPEPSIA Buspirone HCl 5 mg 11/29/16 14:00 12/13/16 14:20 Buspar - PO 5 mg TID ELENA Administration Colloidal Oatmeal 1 applic 12/01/16 19:19 12/01/16 21:15 Aveeno Soap - TP 1 bar DAILY PRN Administration HYGEINE Cyclobenzaprine HCl 10 mg 11/28/16 14:37 12/13/16 10:08 Flexeril - PO 10 mg TID PRN Administration MUSCLE SPASMS Diphenhydramine HCl 50 mg 11/28/16 14:35 12/05/16 21:17 Benadryl - PO 50 mg HSMR1 PRN Administration FOR ITCHING Eucalyptus/Menthol/Phenol/Sorbitol 1 each 11/28/16 14:35 Cepastat Lozenge - MM Q4H PRN SORE THROAT Gabapentin 300 mg 12/03/16 22:00 12/13/16 10:04 Neurontin - PO 300 mg BID ELENA Administration Guaifenesin 10 ml 11/28/16 14:35 12/01/16 10:01 Robitussin Dm - PO 10 ml Q6H PRN Administration COUGH Hydrocortisone 1 applic 11/29/16 22:00 12/13/16 10:05 Hytone 1% Cream - TP Not Given BID ELENA Hydroxyzine Pamoate 50 mg 11/28/16 14:35 12/13/16 10:08 Vistaril - PO 50 mg Q4H PRN Administration AGITATION Ibuprofen 400 mg 11/28/16 14:35 Motrin - PO Q6H PRN PAIN Lidocaine 1 patch 11/29/16 12:15 12/13/16 10:04 Lidoderm Patch - TP 1 patch DAILY ELENA Administration Loperamide HCl 4 mg 11/28/16 14:35 Imodium - PO Q6H PRN DIARRHEA Magnesium Hydroxide 30 ml 11/28/16 14:35 Milk Of Magnesia - PO DAILY PRN CONSTIPATION Nicotine 14 mg 12/08/16 10:00 12/13/16 10:05 Nicoderm Patch - TD 14 mg DAILY ELENA Administration Nicotine Polacrilex 2 mg 11/28/16 14:53 12/13/16 14:20 Nicorette Gum - BUC 2 mg Q2H PRN Administration NICOTINE REPLACEMENT RX Multivit/Folic Acid/Iron 1 tab 11/29/16 10:00 12/13/16 10:04 Vitamins (Sjr) - PO 1 tab DAILY ELENA Administration Pseudoephedrine/Triprolidine 1 combo 11/28/16 14:35 12/01/16 09:56 Actifed - PO 1 combo TID PRN Administration NASAL CONGESTION Quetiapine Fumarate 50 mg 12/09/16 22:00 12/12/16 21:07 Seroquel - PO 50 mg HS ELENA Administration Thiamine HCl 100 mg 11/28/16 22:00 12/12/16 21:07 Vitamin B1 - PO 100 mg HS ELENA Administration Current Side Effect: No Lab tests ordered: Yes Lab tests reviewed: Yes Provider note:: Patient will complete this program on 12/15/16. He has met his treatment goals and will continue to address his issues at [facility] in [place], [place]. 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 He responded well to Seroquel 50 mg po HS and Buspar 5 mg po TID. Script for 30 days supply for these medications will be electronically transmitted to [facility] at [address] [place] [address]. He is stable for discharge on 12/15/16 Total face to face time:: 35 Mental Status Exam - Mental Status Exam Alert and Oriented to: Time, Place, Person Cognitive Function: Fair Patient Appearance: Well Groomed Mood: Hopeful, Euthymic Affect: Appropriate Patient Behavior: Cooperative Speech Pattern: Clear Voice Loudness: Normal Thought Process: Intact Hallucinations: Denies Suicidal Ideation: Denies Homicidal Ideation: Denies Insight/Judgement: Fair Sleep: Fair Appetite: Good Muscle strength/Tone: Normal Gait/Station: Normal Psychiatric Treatment Plan - Problem List (1) Alcohol dependence with uncomplicated withdrawal Current Visit: No (2) Opioid dependence Current Visit: Yes (3) Benzodiazepine dependence Current Visit: No (4) Nicotine dependence Current Visit: No Qualifiers: Nicotine product type: cigarettes Substance use status: uncomplicated Qualified Code(s): F17.210 - Nicotine dependence, cigarettes, uncomplicated (5) Drug-induced mood disorder Current Visit: No (6) Substance-induced sleep disorder Current Visit: No (7) Crohn's disease, acute Current Visit: No Qualifiers: Digestive disease complication type: without complications (8) Anemia Current Visit: No Initial treatment plan: Patient will be discharged tomorrow and referred to [facility] for outpatient treatment
[2016-12-13] MEDS: THIAMINE HCL 100 MG TABLET (FP) PO SCH (21:14)
[2016-12-13] MEDS: QUEtiapine FUMARATE 50 MG TABLET PO SCH (21:15)
[2016-12-14] MEDS: busPIRone HCL 5 MG TABLET PO SCH ×3 (06:15→21:13)
[2016-12-14 06:51] VITALS: TEMP 97.7
[2016-12-14] MEDS: PRENATAL VITAMINS W/ FOLIC ACID TABLET (FP) PO SCH (09:40)
[2016-12-14] MEDS: GABAPENTIN 300 MG CAPSULE (FP) PO SCH ×2 (09:40→21:13)
[2016-12-14] MEDS: NICOTINE 14 MG/24 HOURS TOPICAL PATCH TD SCH (09:40)
[2016-12-14] MEDS: CYCLOBENZAPRINE HCL 10 MG TABLET (FP) PO PRN ×2 (09:42→21:13)
[2016-12-14] MEDS: HYDROCORTISONE 1% TOPICAL CREAM 30 GM TUBE TP SCH ×2 (09:42→21:13)
[2016-12-14] MEDS: LIDOCAINE 5% TOPICAL PATCH TP SCH (09:42)
[2016-12-14] MEDS: hydrOXYzine PAMOATE 50 MG CAPSULE (FP) PO PRN ×2 (09:43→21:13)
[2016-12-14] MEDS: NICOTINE POLACRILEX 2 MG GUM BUC PRN ×2 (13:03→17:34)
[2016-12-14] MEDS: THIAMINE HCL 100 MG TABLET (FP) PO SCH (21:13)
[2016-12-14] MEDS: QUEtiapine FUMARATE 50 MG TABLET PO SCH (21:14)
[2016-12-15] MEDS: busPIRone HCL 5 MG TABLET PO SCH (06:10)
[2016-12-15 07:28] VITALS: BP 122/77; PULSE 89
[2016-12-15] MEDS: NICOTINE POLACRILEX 2 MG GUM BUC PRN (07:31)
[2016-12-15] MEDS: NICOTINE 14 MG/24 HOURS TOPICAL PATCH TD SCH (09:02)
[2016-12-15] MEDS: HYDROCORTISONE 1% TOPICAL CREAM 30 GM TUBE TP SCH (09:02)
[2016-12-15] MEDS: GABAPENTIN 300 MG CAPSULE (FP) PO SCH (09:02)
[2016-12-15] MEDS: LIDOCAINE 5% TOPICAL PATCH TP SCH (09:02)
[2016-12-15] MEDS: PRENATAL VITAMINS W/ FOLIC ACID TABLET (FP) PO SCH (09:03)
== END 2016-12-15 08:25 | disposition home or self-care (01) | DRG 772 ==
LOC: YASAS 13:20 → Y5N 13:21
PROVIDERS: ADMIT Psychiatry & Neurology Psychiatry; ATTEND Psychiatry & Neurology Psychiatry
PROC: HZ42ZZZ Group Counseling for Substance Abuse Treatment, Cognitive-Behavioral (ICD-10-PCS; principal; 2016-11-28)
DX: F11.20 Opioid dependence, uncomplicated (principal); F13.20 Sedative, hypnotic or anxiolytic dependence, uncomplicated; F10.20 Alcohol dependence, uncomplicated; F17.210 Nicotine dependence, cigarettes, uncomplicated; F19.24 Other psychoactive substance dependence with psychoactive substance-induced mood disorder; F19.282 Other psychoactive substance dependence with psychoactive substance-induced sleep disorder; F41.1 Generalized anxiety disorder; K50.90 Crohn's disease, unspecified, without complications; D64.9 Anemia, unspecified; M51.17 Intervertebral disc disorders with radiculopathy, lumbosacral region; Z86.69 Personal history of other diseases of the nervous system and sense organs; J20.9 Acute bronchitis, unspecified

== ENCOUNTER 2017-12-19 22:10 | Emergency (ER) | payer OTHER ==
[2017-12-19 22:17] VITALS: BP 123/60; BMI 24.7
--- NOTE | 2017-12-19 22:26 | PDOC ---
History of Present Illness - General Chief Complaint: Edema Stated Complaint: ANKLE SWELLING Time Seen by Provider: 12/19/17 22:25 History Source: Patient - History of Present Illness Initial Comments: 12/19/17 22:33 32 year old male with b/l lower extremity swelling noticed today. denies shortness of breath, chest pain, fever, lower extremity pain or redness. denies GI symptoms, hematuria, hematochezia, rectal bleeding. patient s/p detox for heroin on 12/15. PMHX: substance abuse (heroin), current everyday smoker and alcohol use.. Crohns disease. 12/20/17 00:06 Lower Ext. Injury Location - Specific Injury Location Ankle: bilateral no evidence of injury, bilateral swelling (b/l lower extremity edema with + pedal pulse) Foot: bilateral foot no evidence of injury Past History - Past Medical History Allergies/Adverse Reactions: Allergies Allergy/AdvReac Type Severity Reaction Status Date / Time Sulfa (Sulfonamide Allergy Intermediate Rash Verified 12/19/17 22:13 Antibiotics) Home Medications: Ambulatory Orders Compress.stocking,Knee,Reg,Lrg [T.e.d. Anti-Embolism Stocking] 1 each MC DAILY # 2 each 12/20/17 Anemia: No Asthma: No Cancer: No Cardiac Disorders: No CVA: No COPD: No CHF: No Dementia: No Diabetes: No GI Disorders: No Disorders: Yes (Chron's disease) HTN: No Hypercholesterolemia: No Kidney Stones: Yes (09/2015) Liver Disease: No Seizures: No Thyroid Disease: No - Surgical History Abdominal Surgery: Yes (BOWEL RESECTION IN 2011 for crohn's disease) Appendectomy: No Cardiac Surgery: No Cholecystectomy: No Lung Surgery: No Neurologic Surgery: No Orthopedic Surgery: Yes (Left ankle Surg ) - Reproductive History Testicular Surgery: No - Suicide/Smoking/Psychosocial Hx Smoking Status: No Smoking History: Current every day smoker Have you smoked in the past 12 months: Yes Number of Cigarettes Smoked Daily: 10 Cigars Per Day: 0 Information on smoking cessation initiated: No 'Breaking Loose' booklet given: 11/05/17 Hx Alcohol Use: Yes (1 6-PACK.) Drug/Substance Use Hx: Yes Substance Use Type: Alcohol, Heroin (2=3 bundles injecting), Tranquilizers (4 mg daily , Xanax) Hx Substance Use Treatment: Yes (several detox) Review of Systems - Review of Systems Able to Perform ROS?: Yes Is the patient limited [place] proficient: No Respiratory: No: Symptoms reported, See HPI, Cough, Orthopnea, Shortness of Breath, SOB with Exertion, SOB at Rest, Stridor, Wheezing, Productive cough, Hemoptysis, Other Cardiac (ROS): No: Symptoms Reported, See HPI, Chest Pain, Edema, Irregular Heart Rate, Lightheadedness, Palpitations, Syncope, Chest Tightness, Other Integumentary: Yes: Other (edema b/ LE) *Physical Exam - Vital Signs Last Vital Signs Temp Pulse Resp BP Pulse Ox 98.7 F 113 H 16 123/60 96 12/19/17 22:16 12/19/17 22:16 12/19/17 22:16 12/19/17 22:16 12/19/17 22:16 - Physical Exam General Appearance: Yes: Appropriately Dressed HEENT: positive: Other (pupils reactive 2--> 3 b/l. ) Respiratory/Chest: positive: Lungs Clear, Normal Breath Sounds Cardiovascular: positive: Regular Rhythm, Tachycardia Musculoskeletal: positive: Normal Inspection Extremity: positive: Normal Capillary Refill, Normal Inspection, Normal Range of Motion, Pedal Edema (b/l lower extremity edema. no ankle pain/ redness or tenderness. ), Other (track givens noted on both upper extremities) Integumentary: positive: Normal Color, Dry, Warm Neurologic: positive: Fully Oriented, Alert, Normal Mood/Affect ED Treatment Course - LABORATORY CBC & Chemistry Diagram: 12/19/17 23:15 12/19/17 23:15 Progress Note - Progress Note Progress Note: A ; b/l Lower extremity edema P: b/l lower extremity ultrasound r/o DVT. CBC: hgb 8.4 CMP Chest xray ultrasound likely dependent edema due to chronic IVDA> Medical Decision Making - Medical Decision Making 12/20/17 00:08 patient refused chest xray . *DC/Admit/Observation/Transfer Diagnosis at time of Disposition: Bilateral lower extremity edema Anemia Qualifiers: Anemia type: unspecified type Qualified Code(s): D64.9 - Anemia, unspecified - Discharge Dispostion Disposition: HOME - Prescriptions Prescriptions: Compress.stocking,Knee,Reg,Lrg [T.e.d. Anti-Embolism Stocking] 1 each DAILY # 2 each - Referrals Referrals: Constantino Phelan MD [Primary Care Provider] - - Patient Instructions Printed Discharge Instructions: Anemia: How Food and Vitamins Can Help Additional Instructions: elevate your extremities, TANIA stocking to imporve circulation. Follow up with your GI doctor. your Hgb 8.4. this needs to be followed closely. - Post Discharge Activity
[2017-12-19 23:23] LABS: BASO % 0.6 % (0-2.0); EOS % 0.5 % (0-4.5); HEMATOCRIT 27.1 % (35.4-49); HEMOGLOBIN 8.5 GM/dL (11.7-16.9); LYMPH % 19.1 % (8-40); MCHC 31.5 g/dl (32.0-35.9); MEAN CELL VOLUME 61.1 fl (80-96); MEAN PLT VOLUME 8.7 fl (7.5-11.1); MONO % 15.8 % (3.8-10.2); PLATELET COUNT 416 K/MM3 (134-434); RBC 4.43 M/mm3 (4.00-5.60); RDW 18.7 % (11.9-15.9); WHITE BLOOD COUNT 8.4 K/mm3 (4.0-10.0)
[2017-12-19 23:29] LABS: ADD RBC MORPHOLOGY YES; MCH 19.3 pg (25.7-33.7)
[2017-12-19 23:47] LABS: ALBUMIN 2.4 g/dl (3.4-5.0); ALK PHOS 55 U/L (45-117); ANION GAP 12 (8-16); BILIRUBIN,TOTAL 0.3 mg/dL (0.2-1.0); BLOOD UREA NITROGEN 10 mg/dL (7-18); CHLORIDE 101 mmol/L (98-107); CO2 23 mmol/L (21-32); CREATININE 0.8 mg/dL (0.7-1.3); GLUCOSE,RANDOM 95 mg/dL (74-106); POTASSIUM 3.4 mmol/L (3.5-5.1); SGOT/AST 11 U/L (15-37); SGPT/ALT 9 U/L (12-78); SODIUM 136 mmol/L (136-145); TOT PROT 5.9 g/dl (6.4-8.2)
[2017-12-19 23:56] LABS: ANISOCYTOSIS 1+; MACROCYTOSIS 1+; PLATELET ESTIMATE ADEQUATE
[2017-12-20 00:15] VITALS: PULSE 98; TEMP 98.6
== END 2017-12-20 00:15 | disposition home or self-care (01) ==
LOC: JER 22:10
DX: R60.0 Localized edema (principal); F17.210 Nicotine dependence, cigarettes, uncomplicated; Z87.19 Personal history of other diseases of the digestive system
CPT/HCPCS: 36415; 80053; 85025; 93970-TC; 99281-25

== ENCOUNTER 2017-12-29 09:21 | Inpatient (IN) | payer OTHER ==
[2017-12-29 11:20] VITALS: BMI 24.9
--- NOTE | 2017-12-29 12:12 | HP ---
COWS - Scale Resting Pulse: 1= [place] 81-100 Sweatin=Flushed/Facial Moisture Restless Observation: 3= Extraneous Movement Pupil Size: 2= Moderately Dilated Bone or Joint Aches: 2= Severe Diffuse Aches Runny Nose/ Eye Tearin= Runny Nose/Eyes GI Upset > 30mins: 3= Vomiting/Diarrhea Tremor Observation: 2= Slight Tremor Visible Yawning Observation: 2= >3x During Session Anxiety or Irritability: 2=Irritable/Anxious Goose Flesh Skin: 0=Smooth Skin COWS Score: 21 CIWA Score - CIWA Score Nausea/Vomitin Muscle Tremors: 3 Anxiety: 3 Agitation: 3 Paroxysmal Sweats: 2 Orientation: 0-Oriented Tacttile Disturbances: 2-Mild Itch/Numbness/Burn Auditory Disturbances: 2-Mild Harshness/Frighten Visual Disturbances: 2-Mild Sensitivity Headache: 2-Mild CIWA-Ar Total Score: 22 Admission ROS S - HPI Chief Complaint: I NEED HELP TO STOP USING HEROIN,ALCOHOL,COCAINE,XANAX,MARIJUANA,SEEKING DETOX, WITHDRAWAL SYMPTOM,LAST DETOX [facility] 11/22/16 TO11/28/16 SEIZURE WITHDRAWAL LAST 11/10 WEIGHT LOSS NICOTINE DEPENDENCE LONGEST PERIOD OF SOBRIETY 8 MONTHS ANXIETY AND DEPRESSION CROHN'S DISEASE S/P SURGERY,APPENDECTOMY,ON REMISSION 2011 Allergies/Adverse Reactions: Allergies Allergy/AdvReac Type Severity Reaction Status Date / Time Sulfa (Sulfonamide Allergy Intermediate Rash Verified 12/29/17 12:03 Antibiotics) History of Present Illness: THIS 32 YEARS OLD MALE WITH HEROIN,ALCOHOL,XANAX,COCAINE AND MARIJUANA DEPENDENCE FOR DETOX MENTIONED ABOVE - Ebola screening Have you traveled outside of the country in the last 21 days: No Have you had contact with anyone from an Ebola affected area: No Have you been sick,other than usual withdrawal symptoms: No Do you have a fever: No - Review of Systems Constitutional: Chills, Loss of Appetite, Malaise, Night Sweats, Changes in sleep, Weakness, Unintentional Wgt. Loss EENT: reports: Tearing, Nose Congestion Respiratory: reports: No Symptoms reported Cardiac: reports: No Symptoms Reported GI: reports: Diarrhea, Nausea, Vomiting, Abdominal cramping : reports: No Symptoms Reported Musculoskeletal: reports: Back Pain, Joint Pain, Muscle Pain, Joint Stiffness Integumentary: reports: Dryness Neuro: reports: Headache, Tremors Endocrine: reports: No Symptoms Reported Hematology: reports: No Symptoms Reported Psychiatric: reports: No Sypmtoms Reported, Judgement Intact, Mood/Affect Appropiate, Orientated x3, Anxious, Depressed Patient History - Patient Medical History Hx Anemia: No Hx Asthma: No Hx Chronic Obstructive Pulmonary Disease (COPD): No Hx Cancer: No Hx Cardiac Disorders: No Hx Congestive Heart Failure: No Hx Hypertension: No Hx Hypercholesterolemia: No Hx Pacemaker: No HX Cerebrovascular Accident: No Hx Seizures: No Hx Dementia: No Hx Diabetes: No Hx Gastrointestinal Disorders: Yes Hx Liver Disease: No Hx Genitourinary Disorders: Yes (CROHN"S DISEASE) Hx Sexually Transmitted Disorders: No Hx Renal Disease (ESRD): No Hx Thyroid Disease: No Hx Human Immunodeficiency Virus (HIV): No (negative) Hx Hepatitis C: No (negative) Hx Depression: Yes (ANXIETY) Hx Suicide Attempt: No Hx Bipolar Disorder: No Hx Schizophrenia: No Other Medical History: NO SUICIDAL,NO HOMICIDAL - Patient Surgical History Past Surgical History: Yes Hx Neurologic Surgery: No Hx Cataract Extraction: No Hx Cardiac Surgery: No Hx Lung Surgery: No Hx Breast Surgery: No Hx Breast Biopsy: No Hx Abdominal Surgery: Yes (BOWEL RESECTION IN 2011 for crohn's disease LAP) Hx Appendectomy: Yes (LAP) Hx Cholecystectomy: No Hx Genitourinary Surgery: No Hx Section: No Hx Orthopedic Surgery: Yes (Left ankle Surg ) Anesthesia Reaction: No - PPD History Previous Implant?: Yes Documented Results: Negative w/o proof Date: 02/03/16 Results: 0mm PPD to be Administered?: Yes - Smoking Cessation Smoking history: Current every day smoker Have you smoked in the past 12 months: Yes Aproximately how many cigarettes per day: 10 Cigars Per Day: 0 Hx Chewing Tobacco Use: No Initiated information on smoking cessation: Yes 'Breaking Loose' booklet given: 12/29/17 - Substance & Tx. History Hx Alcohol Use: Yes Hx Substance Use: Yes Substance Use Type: Alcohol, Cocaine, Heroin, Marijuana, Tranquilizers Hx Substance Use Treatment: Yes ([facility] 11/22/16 TO 11/28/16) - Substances Abused Heroin Route: Injection Frequency: Daily Amount used: 1-2 GRAMS Age of first use: 25 Date of Last Use: 12/28/17 Alprazolam (Xanax) Route: Oral Frequency: Daily Amount used: 6-8MG Age of first use: 28 Date of Last Use: 12/26/17 Alcohol Route: Oral Frequency: Daily Amount used: 1/2 PINT-1 PINT VODKA Age of first use: 24 Date of Last Use: 12/27/17 Cocaine Route: Inhalation Frequency: Daily Amount used: $40 Age of first use: 29 Date of Last Use: 12/28/17 Marijuana/Hashish Route: Smoking Frequency: Daily Amount used: $20 Age of first use: 20 Date of Last Use: 12/28/17 Family Disease History - Family Disease History Family Disease History: Diabetes: Grandparent, Heart Disease: Grandparent, Respiratory: Father (STOPPED USING ETOH AND COCAINE), Other: Father Admission Physical Exam S - Vital Signs Vital Signs: Vital Signs - 24 hr 12/29/17 11:16 Temperature 97.1 F L Pulse Rate 94 H Respiratory 20 Rate Blood Pressure 141/68 - Physical General Appearance: Yes: Moderate Distress, Irritable, Sweating, Anxious HEENTM: Yes: Within Normal Limits, Hearing grossly Normal, Normal ENT Inspection , KRYSTIAN, Pharynx Normal Respiratory: Yes: Lungs Clear, Normal Breath Sounds, No Respiratory Distress Neck: Yes: Within Normal Limits, Supple, Trachea in good position Breast: Yes: Within Normal Limits Cardiology: Yes: Within Normal Limits, Regular Rhythm, Regular Rate, S1, S2 Abdominal: Yes: Within Normal Limits, Normal Bowel Sounds, Non Tender, Flat, Soft Genitourinary: Yes: Within Normal Limits Back: Yes: Within Normal Limits, Normal Inspection, Muscle Spasm Musculoskeletal: Yes: full range of Motion, Muscle Pain Extremities: Yes: Normal Range of Motion, Tremors, Inflammation (CELLULITIS LEFT FOREARM) Neurological: Yes: Within Normal Limits, track grinder II-XII NML intact, Fully Oriented, Alert, Motor Strength 5/5 Integumentary: Yes: Dry, Track [place] (CELLULITIS LEFT FOREARM) - Diagnostic (1) Opioid dependence with withdrawal Current Visit: No Status: Acute (2) Drug withdrawal seizure Current Visit: Yes Status: Acute (3) Alcohol dependence with uncomplicated withdrawal Current Visit: No Status: Acute (4) Sedative, hypnotic or anxiolytic dependence with withdrawal, uncomplicated Current Visit: No Status: Acute (5) Crohns disease Current Visit: No Status: Chronic Qualifiers: Gastrointestinal tract location: small intestine Digestive disease complication type: unspecified complication Qualified Code(s): K50.019 - Crohn 's disease of small intestine with unspecified complications (6) Nicotine dependence Current Visit: No Status: Chronic Qualifiers: Nicotine product type: cigarettes Substance use status: uncomplicated Qualified Code(s): F17.210 - Nicotine dependence, cigarettes, uncomplicated (7) Cocaine dependence Current Visit: Yes Status: Acute (8) Cannabis dependence Current Visit: Yes Status: Acute (9) Nicotine dependence Current Visit: Yes Status: Acute (10) Anxiety and depression Current Visit: Yes Status: Acute (11) Weight loss Current Visit: Yes Status: Acute (12) History of bowel resection Current Visit: Yes Status: Acute (13) History of appendectomy Current Visit: Yes Status: Acute (14) Cellulitis of left forearm Current Visit: Yes Status: Acute Cleared for Admission [facility] - Detox or Rehab S Level of Care: Medically Managed Detox Regimen/Protocol: Methadone/Valium [facility] Breath Alcohol Content Breath Alcohol Content: 0 Urine Drug Screen - Results Drug Screen Negative: No Urine Drug Screen Results: THC-Marijuana, SAVANNAH-Cocaine, OPI-Opiates, OXY- Oxycodone
[2017-12-29] MEDS ORDERED: ACETAMINOPHEN 325 MG TABLET (FP) PO PRN (12:31)
[2017-12-29] MEDS ORDERED: MAG HYDROX/AL HYDROX/SIMETH 30 ML UNIT-DOSE CUP PO PRN (12:31)
[2017-12-29] MEDS ORDERED: P-EPHED 60MG/TRIPROLIDI 2.5MG TABLET PO PRN (12:31)
[2017-12-29] MEDS ORDERED: MAGNESIUM HYDROX 2400MG/30ML ORAL SUSPENSION 30 ML CUP PO PRN (12:31)
[2017-12-29] MEDS ORDERED: IBUPROFEN 400 MG TABLET (FP) PO PRN (12:31)
[2017-12-29] MEDS ORDERED: MAGNESIUM CITRATE 300 ML BOTTLE PO PRN (12:31)
[2017-12-29] MEDS ORDERED: MENTHOL/PHENOL 1 EACH UD MM PRN (12:31)
[2017-12-29] MEDS ORDERED: guaiFENesin/D-METHORPHAN HB 10 ML UNIT-DOSE CUPS PO PRN (12:31)
[2017-12-29] MEDS ORDERED: LOPERAMIDE HCL 2 MG CAPSULE PO PRN (12:31)
[2017-12-29] MEDS ORDERED: METHADONE HCL 10 MG TABLET (FOR DETOX USE ONLY) PO ONE (13:50)
[2017-12-29] MEDS ORDERED: diazePAM 5 MG TABLET PO ONE (13:50)
[2017-12-29] MEDS: NICOTINE 21 MG/24 HOURS TOPICAL PATCH TD SCH (14:43)
[2017-12-29] MEDS: diazePAM 5 MG TABLET PO SCH ×2 (14:47→22:09)
--- NOTE | 2017-12-29 15:37 | CONSULT ---
[facility] Psychiatric Consult - Data Date of interview: 12/29/17 Admission source: [facility] Identifying data: Pt. is a 32 year old single male, father of one, unemployed and currently homeless. This is one of multiple admissions for patient. Pt. admitted to for opiate dependence. Substance Abuse History: Opiate- First used 25 Amount used: 1-2 grams per day. Last used: 12/28/17. Cocaine- First used 29, reports using once per month. Used this month. Marijuana- first used at 20. 1-2 times per month, Last used this month. Medical History: Crohn's disease. Psychiatric History: Pt. denies h/o psychiatric hospitalizations, outpatient care and suicide attempts. Pt. reports h/o anxiety and depression. Pt. was admitted to rehab on 12/10 and was ordered buspar 5mg TID and Seroquel 50mg. Pt. reports favorable effect from accepting buspar and is requesing to restart medication in addition to a sleep aid. Pt. has also taken trazodone for sleep but stated it was not effective. Physical/Sexual Abuse/Trauma History: Denies. Mental Status Exam - Mental Status Exam Alert and Oriented to: Time, Place, Person Cognitive Function: Good Patient Appearance: Well Groomed Mood: Euthymic Affect: Mood Congruent Patient Behavior: Appropriate, Cooperative Speech Pattern: Clear, Appropriate Voice Loudness: Normal Thought Process: Goal Oriented Thought Disorder: Not Present Hallucinations: Denies Suicidal Ideation: Denies Homicidal Ideation: Denies Insight/Judgement: Poor Sleep: Poorly Appetite: Fair Muscle strength/Tone: Normal Gait/Station: Normal Psychiatric Findings - Problem List ([place] 1, 2,3) (1) Cocaine dependence Current Visit: Yes Status: Acute (2) Nicotine dependence Current Visit: Yes Status: Acute (3) Cannabis dependence Current Visit: Yes Status: Acute (4) Substance-induced anxiety disorder Current Visit: Yes Status: Acute (5) 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 Detoxification in progress. Buspar 10mg BID ordered + Ambien 10mg qhs for insomnia. Benefits and side effects discussed. Verbal consent given. Will continue to monitor.
[2017-12-29 17:11] LABS: URINE APPEARANCE SLCLOUDY; URINE BILIRUBIN NEGATIVE (NEGATIVE); URINE BLOOD NEGATIVE (NEGATIVE); URINE COLOR YELLOW; URINE GLUCOSE (UA) NEGATIVE (NEGATIVE); URINE KETONE TRACE (NEGATIVE); URINE LEUK ESTERASE NEGATIVE (NEGATIVE); URINE NITRITE NEGATIVE (NEGATIVE)
[2017-12-29 17:12] LABS: URINE PROTEIN 1+ (NEGATIVE)
[2017-12-29] MEDS: AMOX TR/POT CLAV 875MG/125MG TABLETS (FP) PO SCH (17:24)
[2017-12-29 18:00] LABS: EPI CELLS RARE /HPF (FEW); URINE BACTERIA MODERATE /hpf (NONE SEEN); URINE MUCUS MANY
[2017-12-29] MEDS: diazePAM 5 MG TABLET PO PRN (20:25)
[2017-12-29] MEDS: THIAMINE HCL 100 MG TABLET (FP) PO SCH (22:08)
[2017-12-29] MEDS: CYCLOBENZAPRINE HCL 10 MG TABLET (FP) PO PRN (22:09)
[2017-12-29] MEDS: busPIRone HCL 10 MG TABLET (FP) PO SCH (22:10)
[2017-12-29] MEDS: cloNIDine HCL 0.1 MG TABLET PO SCH (22:10)
[2017-12-29] MEDS: ZOLPIDEM TARTRATE 10 MG TABLET (PARK CARE ONLY) PO PRN (22:10)
[2017-12-29] MEDS: METHADONE HCL 10 MG TABLET (FOR DETOX USE ONLY) PO ONE ×2 (22:11→22:34)
[2017-12-30] MEDS: diazePAM 5 MG TABLET PO SCH ×3 (05:33→21:46)
[2017-12-30] MEDS: AMOX TR/POT CLAV 875MG/125MG TABLETS (FP) PO SCH ×2 (07:46→18:55)
--- NOTE | 2017-12-30 09:48 | EKG ---
Test Reason : Blood Pressure : / mmHG Vent. Rate : 077 BPM Atrial Rate : 077 BPM P-R Int : 124 ms QRS Dur : 080 ms QT Int : 396 ms P-R-T Axes : 065 075 064 degrees QTc Int : 448 ms NORMAL SINUS RHYTHM NORMAL ECG WHEN COMPARED WITH ECG OF 23-NOV-2016 00:50, NO SIGNIFICANT CHANGE WAS FOUND Confirmed by MALENA SALAZAR MD ([id number]) on 12/30/2017 9:47:58 AM Referred By: Confirmed By:MALENA SALAZAR MD
[2017-12-30] MEDS ORDERED: METHADONE HCL 10 MG TABLET (FOR DETOX USE ONLY) PO SCH (10:00)
[2017-12-30] MEDS: cloNIDine HCL 0.1 MG TABLET PO SCH ×2 (10:20→21:45)
[2017-12-30] MEDS: NICOTINE 21 MG/24 HOURS TOPICAL PATCH TD SCH (10:20)
[2017-12-30] MEDS: busPIRone HCL 10 MG TABLET (FP) PO SCH ×2 (10:20→21:46)
[2017-12-30] MEDS: PRENATAL VITAMINS W/ FOLIC ACID TABLET (FP) PO SCH (10:20)
[2017-12-30] MEDS: diazePAM 5 MG TABLET PO PRN ×2 (10:21→16:48)
--- NOTE | 2017-12-30 11:22 | PN ---
S CIWA - CIWA Score Nausea/Vomitin-No Nausea/No Vomiting Muscle Tremors: 4-Moderate,w/Arms Extend Anxiety: 4-Mod. Anxious/Guarded Agitation: 4-Moderately Restless Paroxysmal Sweats: 1-Minimal Palms Moist Orientation: 0-Oriented Tacttile Disturbances: 3-Moderate Itch/Numb/Burn Auditory Disturbances: 0-None Visual Disturbances: 0-None Headache: 0-None Present CIWA-Ar Total Score: 16 [facility] COWS - Scale Resting Pulse: 1= [place] 81-100 Sweatin= Chills/Flushing Restless Observation: 3= Extraneous Movement Pupil Size: 2= Moderately Dilated Bone or Joint Aches: 4=Acute Joint/Muscle Pain Runny Nose/ Eye Tearin= Nasal Congestion GI Upset > 30mins: 1= Stomach Cramp Tremor Observation of Outstretched Hands: 1= Tremor [place], Not Seen Yawning Observation: 1= 1-2x During Session Anxiety or Irritability: 2=Irritable/Anxious Goose Flesh Skin: 0=Smooth Skin COWS Score: 17 S Progress Note (SOAP) Subjective: ANXIETY,SWEATS,CHILLS,RESTLESSNESS,MUSCLE ACHES, INTERMITTENT SLEEP. Objective: 12/30/17 11:19 Vital Signs Temperature 97.5 F L 12/30/17 10:46 Pulse Rate 92 H 12/30/17 10:46 Respiratory Rate 18 12/30/17 10:46 Blood Pressure 121/65 12/30/17 10:46 O2 Sat by Pulse Oximetry (%) Laboratory Last Values Urine Color Yellow 12/29/17 16:00 Urine Appearance Slcloudy 12/29/17 16:00 Urine pH 6.0 (5.0-8.0) 12/29/17 16:00 Ur Specific [place] 1.023 (1.001-1.035) 12/29/17 16:00 Urine Protein 1+ (NEGATIVE) H 12/29/17 16:00 Urine Glucose (UA) Negative (NEGATIVE) 12/29/17 16:00 Urine Ketones Trace (NEGATIVE) H 12/29/17 16:00 Urine Blood Negative (NEGATIVE) 12/29/17 16:00 Urine Nitrite Negative (NEGATIVE) 12/29/17 16:00 Urine Bilirubin Negative (NEGATIVE) 12/29/17 16:00 Urine Urobilinogen 2.0 mg/dL (0.2-1.0) 12/29/17 16:00 Ur Leukocyte Esterase Negative (NEGATIVE) 12/29/17 16:00 Urine WBC (Auto) 10 /hpf (3-5) 12/29/17 16:00 Urine RBC (Auto) 31 /hpf (0-3) 12/29/17 16:00 Ur Epithelial Cells Rare /HPF (FEW) 12/29/17 16:00 Urine Bacteria Moderate /hpf (NONE SEEN) 12/29/17 16:00 Urine Mucus Many 12/29/17 16:00 OTHER LABS PENDING UA NOTED Assessment: 12/30/17 11:21 WITHDRAWAL SX R/O UTI Plan: CONTINUE DETOX INCREASE PO FLUIDS REPEAT UA; UC TODAY
[2017-12-30 14:50] LABS: HEMATOCRIT 29.9 % (35.4-49); HEMOGLOBIN 9.5 GM/dL (11.7-16.9); MCHC 31.7 g/dl (32.0-35.9); MEAN CELL VOLUME 61.1 fl (80-96); MEAN PLT VOLUME 6.6 fl (7.5-11.1); PLATELET COUNT 425 K/MM3 (134-434); RBC 4.89 M/mm3 (4.00-5.60); WHITE BLOOD COUNT 11.3 K/mm3 (4.0-10.0)
[2017-12-30 14:54] LABS: MCH 19.4 pg (25.7-33.7)
[2017-12-30 15:02] LABS: ALBUMIN 2.1 g/dl (3.4-5.0); ANION GAP 9 (8-16); BLOOD UREA NITROGEN 10 mg/dL (7-18); CALCIUM 8.5 mg/dL (8.5-10.1); CHLORIDE 104 mmol/L (98-107); CO2 27 mmol/L (21-32); GLUCOSE,RANDOM 94 mg/dL (74-106); POTASSIUM 4.1 mmol/L (3.5-5.1); SODIUM 140 mmol/L (136-145)
[2017-12-30 15:06] LABS: ALK PHOS 62 U/L (45-117); BILIRUBIN,TOTAL 0.1 mg/dL (0.2-1.0); SGOT/AST 9 U/L (15-37); SGPT/ALT 8 U/L (12-78); TOT PROT 6.5 g/dl (6.4-8.2)
[2017-12-30] MEDS: THIAMINE HCL 100 MG TABLET (FP) PO SCH (21:46)
[2017-12-30] MEDS: ZOLPIDEM TARTRATE 10 MG TABLET (PARK CARE ONLY) PO PRN (21:46)
[2017-12-31] MEDS: AMOX TR/POT CLAV 875MG/125MG TABLETS (FP) PO SCH ×2 (07:19→17:35)
[2017-12-31] MEDS: diazePAM 5 MG TABLET PO PRN ×3 (07:21→21:07)
[2017-12-31] MEDS: NICOTINE POLACRILEX 2 MG GUM BUC PRN ×2 (10:51→22:52)
[2017-12-31] MEDS: PRENATAL VITAMINS W/ FOLIC ACID TABLET (FP) PO SCH (10:51)
[2017-12-31] MEDS: diazePAM 5 MG TABLET PO SCH ×2 (10:51→22:50)
[2017-12-31] MEDS: cloNIDine HCL 0.1 MG TABLET PO SCH ×2 (10:51→22:50)
[2017-12-31] MEDS: busPIRone HCL 10 MG TABLET (FP) PO SCH ×2 (10:51→22:50)
[2017-12-31] MEDS: METHADONE HCL 5 MG TABLET (FOR DETOX USE ONLY) PO SCH (10:51)
[2017-12-31] MEDS: NICOTINE 21 MG/24 HOURS TOPICAL PATCH TD SCH (10:52)
--- NOTE | 2017-12-31 17:18 | PN ---
[facility] CIWA - CIWA Score Nausea/Vomitin-No Nausea/No Vomiting Muscle Tremors: None Anxiety: 5 Agitation: 4-Moderately Restless Paroxysmal Sweats: 3 Orientation: 0-Oriented Tacttile Disturbances: 2-Mild Itch/Numbness/Burn Auditory Disturbances: 0-None Visual Disturbances: 2-Mild Sensitivity Headache: 0-None Present CIWA-Ar Total Score: 16 S COWS - Scale Resting Pulse: 2= [place] 101-120 Sweatin= Chills/Flushing Restless Observation: 1= Difficult to Sit Still Pupil Size: 0= Normal to Room Light Bone or Joint Aches: 1= Mild Discomfort Runny Nose/ Eye Tearin= Nasal Congestion GI Upset > 30mins: 0= None Tremor Observation of Outstretched Hands: 0= None Yawning Observation: 1= 1-2x During Session Anxiety or Irritability: 4=Extreme Anxiety Goose Flesh Skin: 0=Smooth Skin COWS Score: 11 S Progress Note (SOAP) Subjective: Anxious, Insomnia, Sweating, Interrupted Sleep. Objective: PATIENT A & O X 3, OBSERVED AMBULATING ON UNIT. NO ACUTE DISTRESS. 12/31/17 17:15 Vital Signs Temperature 97.1 F L 12/31/17 14:16 Pulse Rate 107 H 12/31/17 14:16 Respiratory Rate 18 12/31/17 14:16 Blood Pressure 107/62 12/31/17 14:16 O2 Sat by Pulse Oximetry (%) Laboratory Tests 12/29/17 12/30/17 12/30/17 16:00 10:15 10:15 WBC 11.3 H D RBC 4.89 Hgb 9.5 L D Hct 29.9 L MCV 61.1 L MCH 19.4 L MCHC 31.7 L RDW 19.0 H Plt Count 425 MPV 6.6 L D Sodium 140 Potassium 4.1 D Chloride 104 Carbon Dioxide 27 Anion Gap 9 BUN 10 Creatinine 1.0 D Creat Clearance w eGFR > 60 Random Glucose 94 Calcium 8.5 Total Bilirubin 0.1 L D AST 9 L ALT 8 L Alkaline Phosphatase 62 Total Protein 6.5 Albumin 2.1 L Urine Color Yellow Urine Appearance Slcloudy Urine pH 6.0 Ur Specific [place] 1.023 Urine Protein 1+ H Urine Glucose (UA) Negative Urine Ketones Trace H Urine Blood Negative Urine Nitrite Negative Urine Bilirubin Negative Urine Urobilinogen 2.0 Ur Leukocyte Esterase Negative Urine WBC (Auto) 10 Urine RBC (Auto) 31 Ur Epithelial Cells Rare Urine Bacteria Moderate Urine Mucus Many RPR Titer 12/30/17 10:15 WBC RBC Hgb Hct MCV MCH MCHC RDW Plt Count MPV Sodium Potassium Chloride Carbon Dioxide Anion Gap BUN Creatinine Creat Clearance w eGFR Random Glucose Calcium Total Bilirubin AST ALT Alkaline Phosphatase Total Protein Albumin Urine Color Urine Appearance Urine pH Ur Specific [place] Urine Protein Urine Glucose (UA) Urine Ketones Urine Blood Urine Nitrite Urine Bilirubin Urine Urobilinogen Ur Leukocyte Esterase Urine WBC (Auto) Urine RBC (Auto) Ur Epithelial Cells Urine Bacteria Urine Mucus RPR Titer Nonreactive LABS NOTED. RESULTS OF REPEAT UA PENDING. PATIENT DENIES ANY UNUSUAL URINARY SYMPTOMS (FREQUENCY, URGENCY, BURNING, PAIN). 12/31/17 17:17 Assessment: 12/31/17 17:15 WITHDRAWAL SYMPTOMS. ANEMIA. 12/31/17 17:18 Plan: CONTINUE DETOX. FEOSOL, 325 MG PO BIDWM. INCREASE DAILY PO FLUID INTAKE.
[2017-12-31] MEDS: FERROUS SO4 325 MG TABLET (FP) PO SCH (17:36)
[2017-12-31] MEDS: THIAMINE HCL 100 MG TABLET (FP) PO SCH (22:50)
[2017-12-31] MEDS: ZOLPIDEM TARTRATE 10 MG TABLET (PARK CARE ONLY) PO PRN (22:50)
[2018-01-01] MEDS: FERROUS SO4 325 MG TABLET (FP) PO SCH ×2 (07:48→17:31)
[2018-01-01] MEDS: AMOX TR/POT CLAV 875MG/125MG TABLETS (FP) PO SCH ×2 (07:48→17:31)
[2018-01-01 10:07] LABS: URINE APPEARANCE CLEAR; URINE BILIRUBIN NEGATIVE (NEGATIVE); URINE BLOOD NEGATIVE (NEGATIVE); URINE COLOR STRAW; URINE GLUCOSE (UA) NEGATIVE (NEGATIVE); URINE KETONE NEGATIVE (NEGATIVE); URINE LEUK ESTERASE NEGATIVE (NEGATIVE); URINE NITRITE NEGATIVE (NEGATIVE); URINE PROTEIN NEGATIVE (NEGATIVE); URINE UROBILINOGEN NEGATIVE mg/dL (0.2-1.0)
[2018-01-01] MEDS: PRENATAL VITAMINS W/ FOLIC ACID TABLET (FP) PO SCH (10:33)
[2018-01-01] MEDS: diazePAM 5 MG TABLET PO SCH ×2 (10:33→22:40)
[2018-01-01] MEDS: busPIRone HCL 10 MG TABLET (FP) PO SCH ×2 (10:33→22:40)
[2018-01-01] MEDS: METHADONE HCL 5 MG TABLET (FOR DETOX USE ONLY) PO SCH (10:34)
[2018-01-01] MEDS: cloNIDine HCL 0.1 MG TABLET PO SCH ×3 (10:35→23:10)
[2018-01-01] MEDS: NICOTINE 21 MG/24 HOURS TOPICAL PATCH TD SCH (10:36)
[2018-01-01] MEDS: NICOTINE POLACRILEX 2 MG GUM BUC PRN (10:37)
[2018-01-01] MEDS: diazePAM 5 MG TABLET PO PRN (12:04)
--- NOTE | 2018-01-01 15:03 | PN ---
[facility] Progress Note (SOAP) Subjective: sweating, body ache, diarrhea (3-4 episodes), chills, interrupted sleep Objective: 01/01/18 15:00 Last Vital Signs Temp Pulse Resp BP Pulse Ox 98.5 F 86 18 94/58 01/01/18 14:12 01/01/18 14:12 01/01/18 14:12 01/01/18 14:12 Laboratory Tests 12/29/17 12/30/17 12/30/17 16:00 10:15 10:15 WBC 11.3 H D RBC 4.89 Hgb 9.5 L D Hct 29.9 L MCV 61.1 L MCH 19.4 L MCHC 31.7 L RDW 19.0 H Plt Count 425 MPV 6.6 L D Sodium 140 Potassium 4.1 D Chloride 104 Carbon Dioxide 27 Anion Gap 9 BUN 10 Creatinine 1.0 D Creat Clearance w eGFR > 60 Random Glucose 94 Calcium 8.5 Total Bilirubin 0.1 L D AST 9 L ALT 8 L Alkaline Phosphatase 62 Total Protein 6.5 Albumin 2.1 L Urine Color Yellow Urine Appearance Slcloudy Urine pH 6.0 Ur Specific [place] 1.023 Urine Protein 1+ H Urine Glucose (UA) Negative Urine Ketones Trace H Urine Blood Negative Urine Nitrite Negative Urine Bilirubin Negative Urine Urobilinogen 2.0 Ur Leukocyte Esterase Negative Urine WBC (Auto) 10 Urine RBC (Auto) 31 Ur Epithelial Cells Rare Urine Bacteria Moderate Urine Mucus Many RPR Titer 12/30/17 01/01/18 10:15 07:20 WBC RBC Hgb Hct MCV MCH MCHC RDW Plt Count MPV Sodium Potassium Chloride Carbon Dioxide Anion Gap BUN Creatinine Creat Clearance w eGFR Random Glucose Calcium Total Bilirubin AST ALT Alkaline Phosphatase Total Protein Albumin Urine Color Straw Urine Appearance Clear Urine pH 8.0 D Ur Specific [place] 1.009 Urine Protein Negative Urine Glucose (UA) Negative Urine Ketones Negative Urine Blood Negative Urine Nitrite Negative Urine Bilirubin Negative Urine Urobilinogen Negative Ur Leukocyte Esterase Negative Urine WBC (Auto) Urine RBC (Auto) Ur Epithelial Cells Urine Bacteria Urine Mucus RPR Titer Nonreactive Labs noted: wbc 11.3 Assessment: 01/01/18 15:02 Withdrawal symptoms Noted with leukocytosis Plan: Continue detox Encouraged to drink lots of water for hydration Leukocytosis: asymptomatic, repeat CBC
[2018-01-01] MEDS: THIAMINE HCL 100 MG TABLET (FP) PO SCH (22:40)
[2018-01-01] MEDS: hydrOXYzine PAMOATE 50 MG CAPSULE (FP) PO PRN (23:34)
[2018-01-02] MEDS: AMOX TR/POT CLAV 875MG/125MG TABLETS (FP) PO SCH ×2 (09:04→17:52)
[2018-01-02] MEDS: FERROUS SO4 325 MG TABLET (FP) PO SCH ×2 (09:04→17:53)
[2018-01-02] MEDS: cloNIDine HCL 0.1 MG TABLET PO SCH ×2 (09:58→22:27)
[2018-01-02] MEDS: PRENATAL VITAMINS W/ FOLIC ACID TABLET (FP) PO SCH (09:58)
[2018-01-02] MEDS: busPIRone HCL 10 MG TABLET (FP) PO SCH ×2 (09:59→22:26)
[2018-01-02] MEDS: NICOTINE 21 MG/24 HOURS TOPICAL PATCH TD SCH (09:59)
[2018-01-02] MEDS ORDERED: diazePAM 5 MG TABLET PO SCH (10:00)
[2018-01-02] MEDS ORDERED: METHADONE HCL 10 MG TABLET (FOR DETOX USE ONLY) PO SCH (10:00)
--- NOTE | 2018-01-02 13:40 | PN ---
[facility] Progress Note (SOAP) Subjective: sleepless shakes sweats Objective: 01/02/18 13:37 A & ox 3 flushed ambulates steadily Vital Signs Temperature 98.1 F 01/02/18 13:22 Pulse Rate 64 01/02/18 13:22 Respiratory Rate 16 01/02/18 13:22 Blood Pressure 98/90 01/02/18 13:22 O2 Sat by Pulse Oximetry (%) Laboratory Last Values WBC 11.3 K/mm3 (4.0-10.0) H D 12/30/17 10:15 RBC 4.89 M/mm3 (4.00-5.60) 12/30/17 10:15 Hgb 9.5 GM/dL (11.7-16.9) L D 12/30/17 10:15 Hct 29.9 % (35.4-49) L 12/30/17 10:15 MCV 61.1 fl (80-96) L 12/30/17 10:15 MCH 19.4 pg (25.7-33.7) L 12/30/17 10:15 MCHC 31.7 g/dl (32.0-35.9) L 12/30/17 10:15 RDW 19.0 % (11.9-15.9) H 12/30/17 10:15 Plt Count 425 K/MM3 (134-434) 12/30/17 10:15 MPV 6.6 fl (7.5-11.1) L D 12/30/17 10:15 Sodium 140 mmol/L (136-145) 12/30/17 10:15 Potassium 4.1 mmol/L (3.5-5.1) D 12/30/17 10:15 Chloride 104 mmol/L (98-107) 12/30/17 10:15 Carbon Dioxide 27 mmol/L (21-32) 12/30/17 10:15 Anion Gap 9 (8-16) 12/30/17 10:15 BUN 10 mg/dL (7-18) 12/30/17 10:15 Creatinine 1.0 mg/dL (0.7-1.3) D 12/30/17 10:15 Creat Clearance w eGFR > 60 (>60) 12/30/17 10:15 Random Glucose 94 mg/dL (74-106) 12/30/17 10:15 Calcium 8.5 mg/dL (8.5-10.1) 12/30/17 10:15 Total Bilirubin 0.1 mg/dL (0.2-1.0) L D 12/30/17 10:15 AST 9 U/L (15-37) L 12/30/17 10:15 ALT 8 U/L (12-78) L 12/30/17 10:15 Alkaline Phosphatase 62 U/L (45-117) 12/30/17 10:15 Total Protein 6.5 g/dl (6.4-8.2) 12/30/17 10:15 Albumin 2.1 g/dl (3.4-5.0) L 12/30/17 10:15 Urine Color Straw 01/01/18 07:20 Urine Appearance Clear 01/01/18 07:20 Urine pH 8.0 (5.0-8.0) D 01/01/18 07:20 Ur Specific [place] 1.009 (1.001-1.035) 01/01/18 07:20 Urine Protein Negative (NEGATIVE) 01/01/18 07:20 Urine Glucose (UA) Negative (NEGATIVE) 01/01/18 07:20 Urine Ketones Negative (NEGATIVE) 01/01/18 07:20 Urine Blood Negative (NEGATIVE) 01/01/18 07:20 Urine Nitrite Negative (NEGATIVE) 01/01/18 07:20 Urine Bilirubin Negative (NEGATIVE) 01/01/18 07:20 Urine Urobilinogen Negative mg/dL (0.2-1.0) 01/01/18 07:20 Ur Leukocyte Esterase Negative (NEGATIVE) 01/01/18 07:20 Urine WBC (Auto) 10 /hpf (3-5) 12/29/17 16:00 Urine RBC (Auto) 31 /hpf (0-3) 12/29/17 16:00 Ur Epithelial Cells Rare /HPF (FEW) 12/29/17 16:00 Urine Bacteria Moderate /hpf (NONE SEEN) 12/29/17 16:00 Urine Mucus Many 12/29/17 16:00 RPR Titer Nonreactive (NONREACTIVE) 12/30/17 10:15 noted, elevated WBC, + moderate urine bacteria Denies any complaint states diarrhea subsided Assessment: 01/02/18 13:39 withdrawal symptoms Plan: continue detox continue increased hydration
--- NOTE | 2018-01-02 16:45 | PN ---
Psychiatric Progress Note Vital Signs: Vital Signs Period Temp Pulse Resp BP Sys/Lal Pulse Ox Last 24 Hr 97.6 F-98.1 F 64-87 - 91-110/59-90 Date of Session: 01/02/18 Chief Complaint:: " My ambien has not been renewed.I need my bedtime dose." HPI: Already seen by forming machine upkeep mechanic Paul on 12/29/17.Patient is about to complete detoxification treatment for alcohol,cocaine,heroin,xanax and cannabis dependence.Reconsult is initially sought for depression but the patient indicates to this feature writer that his main concern is " getting back to ambien ". ROS: Unremarkable.Patient is always visible on the unit,interacting with peers.Alert,pleasant on approach and cognitively intact. Current Medications: Active Medications Generic Name Dose Route Start Last Admin Trade Name Freq PRN Reason Stop Dose Admin Acetaminophen 650 mg 12/29/17 12:31 Tylenol - PO Q4H PRN FEVER Al Hydroxide/Mg Hydroxide 30 ml 12/29/17 12:31 Mylanta Oral Suspension - PO Q6H PRN DYSPEPSIA Amoxicillin/Clavulanate Potassium 1 tab 12/29/17 17:30 01/02/18 09:04 Augmentin - 875mg Tablet PO 1 tab BID@0800,1730 ELENA Administration Buspirone HCl 10 mg 12/29/17 22:00 01/02/18 09:59 Buspar - PO 10 mg BID ELENA Administration Clonidine 0.1 mg 12/29/17 22:00 01/02/18 09:58 Catapres - PO 0.1 mg BID ELENA Administration Cyclobenzaprine HCl 10 mg 12/29/17 12:35 12/29/17 22:09 Flexeril - PO 10 mg TID PRN Administration MUSCLE SPASMS Eucalyptus/Menthol/Phenol/Sorbitol 1 each 12/29/17 12:31 Cepastat Lozenge - MM Q4H PRN SORE THROAT Ferrous Sulfate 325 mg 12/31/17 17:30 01/02/18 09:04 Feosol - PO 325 mg BIDWM ELENA Administration Guaifenesin 10 ml 12/29/17 12:31 Robitussin Dm - PO Q6H PRN COUGH Hydroxyzine Pamoate 50 mg 12/29/17 12:31 01/01/18 23:34 Vistaril - PO 50 mg Q4H PRN Administration AGITATION Ibuprofen 400 mg 12/29/17 12:31 Motrin - PO Q6H PRN PAIN LEVEL 4-6 Loperamide HCl 4 mg 12/29/17 12:31 Imodium - PO Q6H PRN DIARRHEA Magnesium Citrate 300 ml 12/29/17 12:31 Citroma - PO Q48H PRN CONSTIPATION Magnesium Hydroxide 30 ml 12/29/17 12:31 Milk Of Magnesia - PO DAILY PRN CONSTIPATION Methadone HCl 5 mg 01/03/18 06:00 Dolophine - PO 01/03/18 06:01 DAILY@0600 ELENA Nicotine 21 mg 12/29/17 13:50 01/02/18 09:59 Nicoderm Patch - TD Not Given DAILY ELENA Nicotine Polacrilex 2 mg 12/29/17 12:31 01/01/18 10:37 Nicorette Gum - BUC 2 mg Q2H PRN Administration NICOTINE REPLACEMENT RX Multivit/Folic Acid/Iron 1 tab 12/30/17 10:00 01/02/18 09:58 Vitamins (Sjr) - PO 1 tab DAILY ELENA Administration Pseudoephedrine/Triprolidine 1 combo 12/29/17 12:31 Actifed - PO TID PRN NASAL CONGESTION Thiamine HCl 100 mg 12/29/17 22:00 01/01/18 22:40 Vitamin B1 - PO 100 mg HS ELENA Administration Zolpidem Tartrate 10 mg 01/02/18 22:00 Ambien - PO HS PRN INSOMNIA Medication(s) Change(s): Ambien reneewed for 10 mg po hs prn.Patient is made aware of the risk of sleep-walking.Mr Batres is agreable with this careplan. 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 Paul's note is appreciated.Met with patient.Mr Batres is conversant,well-related and comfortable with interviewer.He reports feeling much better after five days of detoxification treatment.Has entertained the hope of transition to rehabilitation care either on or elsewhere at [facility] ( where he is already known).Patient admits to feeling apprehensive about the prospect of unavailability of a bed at both institutions (detox will be completed tomorrow).Mr Batres is currently homeless and fearful of a referral to the [facility] system.He is made aware of potential alternate rehab facilities in the community.Patient replies that he is " fully aware but not happy to be sent to these places in the [place] ". He declares that he is motivated for sobriety, eager to do well in order to regain the trust of his relatives and gets re- admission to the [facility] [place],maintain discipline over his life and become a productive / responsible individual.Mr Batres is future-oriented,logical,well- intentioned and goal-driven.He is disappointed by the current situation (no vacancy on + no immediate opening at [facility] + homelessness ) and apprehensive over the idea of being referred to a program in the [place].Mental status is otherwise stable.Patient has consistently denied experiencing suicidal or homicidal ideation,intent or plan.Baseline. Total face to face time:: 35 Mental Status Exam - Mental Status Exam Alert and Oriented to: Time, Place, Person Cognitive Function: Good Patient Appearance: Well Groomed Mood: Anxious, Hopeful Affect: Appropriate, Normal Range Patient Behavior: Appropriate, Cooperative Speech Pattern: Clear, Appropriate Voice Loudness: Normal Thought Process: Intact, Goal Oriented Thought Disorder: Not Present Hallucinations: Denies Suicidal Ideation: Denies Homicidal Ideation: Denies Insight/Judgement: Fair (wants to go to rehab) Sleep: Poorly, Difficulty falling asleep Appetite: Good Muscle strength/Tone: Normal Gait/Station: Normal Psychiatric Treatment Plan - Problem List (1) Alcohol dependence with uncomplicated withdrawal Current Visit: Yes (2) Opioid dependence with withdrawal Current Visit: Yes (3) Cannabis dependence Current Visit: Yes (4) Sedative, hypnotic or anxiolytic dependence with withdrawal, uncomplicated Current Visit: Yes (5) Cocaine dependence Current Visit: Yes Qualifiers: Substance use status: uncomplicated Qualified Code(s): F14.20 - Cocaine dependence, uncomplicated (6) Nicotine dependence Current Visit: Yes Qualifiers: Nicotine product type: cigarettes Substance use status: in withdrawal Qualified Code(s): F17.213 - Nicotine dependence, cigarettes, with withdrawal (7) Drug-induced mood disorder Current Visit: Yes (8) Insomnia Current Visit: Yes
[2018-01-02] MEDS: hydrOXYzine PAMOATE 50 MG CAPSULE (FP) PO PRN (17:52)
[2018-01-02] MEDS: CYCLOBENZAPRINE HCL 10 MG TABLET (FP) PO PRN ×2 (17:52→22:26)
[2018-01-02] MEDS ORDERED: ZOLPIDEM TARTRATE 10 MG TABLET (PARK CARE ONLY) PO PRN (22:00)
[2018-01-02] MEDS: THIAMINE HCL 100 MG TABLET (FP) PO SCH (22:26)
[2018-01-03] MEDS ORDERED: METHADONE HCL 5 MG TABLET (FOR DETOX USE ONLY) PO SCH (06:00)
[2018-01-03 06:12] VITALS: BP 105/55; PULSE 72; TEMP 97
[2018-01-03] MEDS: FERROUS SO4 325 MG TABLET (FP) PO SCH (07:38)
[2018-01-03] MEDS: AMOX TR/POT CLAV 875MG/125MG TABLETS (FP) PO SCH (07:38)
[2018-01-03] MEDS: busPIRone HCL 10 MG TABLET (FP) PO SCH (09:48)
[2018-01-03] MEDS: cloNIDine HCL 0.1 MG TABLET PO SCH (09:48)
[2018-01-03] MEDS: CYCLOBENZAPRINE HCL 10 MG TABLET (FP) PO PRN (09:48)
[2018-01-03] MEDS: PRENATAL VITAMINS W/ FOLIC ACID TABLET (FP) PO SCH (09:48)
[2018-01-03] MEDS: hydrOXYzine PAMOATE 50 MG CAPSULE (FP) PO PRN (09:49)
[2018-01-03] MEDS: NICOTINE 21 MG/24 HOURS TOPICAL PATCH TD SCH (10:32)
--- NOTE | 2018-01-03 11:49 | PN ---
[facility] Progress Note (SOAP) Subjective: Patient reports that he feels anxious but denies any other current detox symptoms and reports that he feels well overall. Objective: PATIENT A & O X 3, OBSERVED AMBULATING ON UNIT. NO ACUTE DISTRESS. 01/03/18 11:48 Vital Signs Temperature 97.0 F L 01/03/18 06:11 Pulse Rate 72 01/03/18 06:11 Respiratory Rate 18 01/03/18 06:11 Blood Pressure 105/55 01/03/18 06:11 O2 Sat by Pulse Oximetry (%) Laboratory Tests 12/29/17 12/30/17 12/30/17 16:00 10:15 10:15 WBC 11.3 H D RBC 4.89 Hgb 9.5 L D Hct 29.9 L MCV 61.1 L MCH 19.4 L MCHC 31.7 L RDW 19.0 H Plt Count 425 MPV 6.6 L D Sodium 140 Potassium 4.1 D Chloride 104 Carbon Dioxide 27 Anion Gap 9 BUN 10 Creatinine 1.0 D Creat Clearance w eGFR > 60 Random Glucose 94 Calcium 8.5 Total Bilirubin 0.1 L D AST 9 L ALT 8 L Alkaline Phosphatase 62 Total Protein 6.5 Albumin 2.1 L Urine Color Yellow Urine Appearance Slcloudy Urine pH 6.0 Ur Specific [place] 1.023 Urine Protein 1+ H Urine Glucose (UA) Negative Urine Ketones Trace H Urine Blood Negative Urine Nitrite Negative Urine Bilirubin Negative Urine Urobilinogen 2.0 Ur Leukocyte Esterase Negative Urine WBC (Auto) 10 Urine RBC (Auto) 31 Ur Epithelial Cells Rare Urine Bacteria Moderate Urine Mucus Many RPR Titer 12/30/17 01/01/18 10:15 07:20 WBC RBC Hgb Hct MCV MCH MCHC RDW Plt Count MPV Sodium Potassium Chloride Carbon Dioxide Anion Gap BUN Creatinine Creat Clearance w eGFR Random Glucose Calcium Total Bilirubin AST ALT Alkaline Phosphatase Total Protein Albumin Urine Color Straw Urine Appearance Clear Urine pH 8.0 D Ur Specific [place] 1.009 Urine Protein Negative Urine Glucose (UA) Negative Urine Ketones Negative Urine Blood Negative Urine Nitrite Negative Urine Bilirubin Negative Urine Urobilinogen Negative Ur Leukocyte Esterase Negative Urine WBC (Auto) Urine RBC (Auto) Ur Epithelial Cells Urine Bacteria Urine Mucus RPR Titer Nonreactive LABS NOTED. Assessment: 01/03/18 11:48 COMPLETION OF DETOX REGIMEN. Plan: PATIENT SCHEDULED FOR DISCHARGE FROM DETOX UNIT TODAY. PATIENT IS SCHEDULED TO GO TO [facility] ([facility] [address] FOR AFTERCARE.
--- NOTE | 2018-01-03 11:54 | DS ---
[facility] Detox Discharge Summary Admission Date: 12/29/17 Discharge Date: 01/03/18 - History Present History: Alcohol Dependence, Cannabis Dependence, Cocaine Dependence, Opioid Dependence, Sedative Dependence Additional Comments: PATIENT GOING TO [facility] ([email or web address] FOR AFTERCARE. PATIENT WAS DISCHARGED FROM DETOX UNIT IN STABLE MEDICAL CONDITION. Pertinent Past History: Cellulitis of Left Forearm, History of Crohn's Disease, History of Bowel Resection, History of Appendectomy, Anxiety, Depression, Insomnia, Nicotine Dependence, History of Seizures (Due to Withdrawal), Weight Loss. - Physical Exam Results Vital Signs: Vital Signs Temperature 97.0 F L 01/03/18 06:11 Pulse Rate 72 01/03/18 06:11 Respiratory Rate 18 01/03/18 06:11 Blood Pressure 105/55 01/03/18 06:11 O2 Sat by Pulse Oximetry (%) Pertinent Admission Physical Exam Findings: WITHDRAWAL SYMPTOMS. Laboratory Tests 12/29/17 12/30/17 12/30/17 16:00 10:15 10:15 WBC 11.3 H D RBC 4.89 Hgb 9.5 L D Hct 29.9 L MCV 61.1 L MCH 19.4 L MCHC 31.7 L RDW 19.0 H Plt Count 425 MPV 6.6 L D Sodium 140 Potassium 4.1 D Chloride 104 Carbon Dioxide 27 Anion Gap 9 BUN 10 Creatinine 1.0 D Creat Clearance w eGFR > 60 Random Glucose 94 Calcium 8.5 Total Bilirubin 0.1 L D AST 9 L ALT 8 L Alkaline Phosphatase 62 Total Protein 6.5 Albumin 2.1 L Urine Color Yellow Urine Appearance Slcloudy Urine pH 6.0 Ur Specific [place] 1.023 Urine Protein 1+ H Urine Glucose (UA) Negative Urine Ketones Trace H Urine Blood Negative Urine Nitrite Negative Urine Bilirubin Negative Urine Urobilinogen 2.0 Ur Leukocyte Esterase Negative Urine WBC (Auto) 10 Urine RBC (Auto) 31 Ur Epithelial Cells Rare Urine Bacteria Moderate Urine Mucus Many RPR Titer 12/30/17 01/01/18 10:15 07:20 WBC RBC Hgb Hct MCV MCH MCHC RDW Plt Count MPV Sodium Potassium Chloride Carbon Dioxide Anion Gap BUN Creatinine Creat Clearance w eGFR Random Glucose Calcium Total Bilirubin AST ALT Alkaline Phosphatase Total Protein Albumin Urine Color Straw Urine Appearance Clear Urine pH 8.0 D Ur Specific [place] 1.009 Urine Protein Negative Urine Glucose (UA) Negative Urine Ketones Negative Urine Blood Negative Urine Nitrite Negative Urine Bilirubin Negative Urine Urobilinogen Negative Ur Leukocyte Esterase Negative Urine WBC (Auto) Urine RBC (Auto) Ur Epithelial Cells Urine Bacteria Urine Mucus RPR Titer Nonreactive LABS NOTED. - Treatment Hospital Course: Detox Protocol Followed, Detoxed Safely, Responded well, Discharged Condition Good, Rehab Referral Accepted Patient has Accepted a Rehab Referral to: [facility] ([email or web address] . - Medication Discharge Medications: Ambulatory Orders NK [No Known Home Medication] 12/29/17 - Diagnosis (1) Cannabis dependence, uncomplicated Status: Chronic (2) Nicotine dependence Status: Chronic Qualifiers: Nicotine product type: cigarettes Substance use status: in withdrawal Qualified Code(s): F17.213 - Nicotine dependence, cigarettes, with withdrawal (3) Opioid dependence with withdrawal Status: Acute (4) Crohns disease Status: Chronic Qualifiers: Gastrointestinal tract location: small intestine Digestive disease complication type: unspecified complication Qualified Code(s): K50.019 - Crohn 's disease of small intestine with unspecified complications (5) Drug withdrawal seizure Status: Chronic Qualifiers: Complication of substance-induced condition: with unspecified complication Qualified Code(s): F19.239 - Other psychoactive substance dependence with withdrawal, unspecified; R56.9 - Unspecified convulsions; R56.9 - Unspecified convulsions; R56.9 - Unspecified convulsions; R56.9 - Unspecified convulsions (6) History of appendectomy Status: Chronic (7) History of bowel resection Status: Chronic (8) Cocaine dependence Status: Chronic Qualifiers: Substance use status: uncomplicated Qualified Code(s): F14.20 - Cocaine dependence, uncomplicated (9) Sedative, hypnotic or anxiolytic dependence with withdrawal, uncomplicated Status: Acute (10) Anxiety and depression Status: Acute (11) Weight loss Status: Acute (12) History of seizure Status: Chronic (13) Alcohol dependence with uncomplicated withdrawal Status: Acute (14) Insomnia Status: Acute Qualifiers: Insomnia type: unspecified Qualified Code(s): G47.00 - Insomnia, unspecified (15) Cellulitis of left forearm Status: Acute (16) Drug-induced mood disorder Status: Acute (17) Substance-induced anxiety disorder Status: Acute (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
== END 2018-01-03 11:06 | disposition other institution (70) | DRG 773 ==
LOC: YASAS 09:21 → Y3N 13:15
PROVIDERS: ADMIT Internal Medicine; ATTEND Internal Medicine
PROC: HZ2ZZZZ Detoxification Services for Substance Abuse Treatment (ICD-10-PCS; principal; 2017-12-29)
DX: F11.23 Opioid dependence with withdrawal (principal); F13.230 Sedative, hypnotic or anxiolytic dependence with withdrawal, uncomplicated; F10.230 Alcohol dependence with withdrawal, uncomplicated; F14.20 Cocaine dependence, uncomplicated; F12.20 Cannabis dependence, uncomplicated; F17.213 Nicotine dependence, cigarettes, with withdrawal; F41.8 Other specified anxiety disorders; F19.24 Other psychoactive substance dependence with psychoactive substance-induced mood disorder; F19.280 Other psychoactive substance dependence with psychoactive substance-induced anxiety disorder; F19.282 Other psychoactive substance dependence with psychoactive substance-induced sleep disorder; G47.00 Insomnia, unspecified; L03.114 Cellulitis of left upper limb; K50.019 Crohn's disease of small intestine with unspecified complications; D72.829 Elevated white blood cell count, unspecified; D64.9 Anemia, unspecified; Z90.49 Acquired absence of other specified parts of digestive tract; Z86.69 Personal history of other diseases of the nervous system and sense organs; Z87.898 Personal history of other specified conditions
CPT/HCPCS: 36415; 80053; 81003; 81015; 85027; 86593; 87086; 93005; 93010; J0735

== ENCOUNTER 2018-01-03 11:26 | Inpatient (IN) | payer OTHER ==
[2018-01-03] MEDS ORDERED: MENTHOL/PHENOL 1 EACH UD MM PRN (11:42)
[2018-01-03] MEDS ORDERED: MAGNESIUM CITRATE 300 ML BOTTLE PO PRN (11:42)
[2018-01-03] MEDS ORDERED: MAGNESIUM HYDROX 2400MG/30ML ORAL SUSPENSION 30 ML CUP PO PRN (11:42)
[2018-01-03] MEDS ORDERED: MAG HYDROX/AL HYDROX/SIMETH 30 ML UNIT-DOSE CUP PO PRN (11:42)
[2018-01-03] MEDS ORDERED: P-EPHED 60MG/TRIPROLIDI 2.5MG TABLET PO PRN (11:42)
[2018-01-03] MEDS ORDERED: IBUPROFEN 400 MG TABLET (FP) PO PRN (11:42)
[2018-01-03] MEDS ORDERED: guaiFENesin/D-METHORPHAN HB 10 ML UNIT-DOSE CUPS PO PRN (11:42)
[2018-01-03] MEDS ORDERED: LOPERAMIDE HCL 2 MG CAPSULE PO PRN (11:42)
[2018-01-03] MEDS ORDERED: ACETAMINOPHEN 325 MG TABLET (FP) PO PRN (11:42)
--- NOTE | 2018-01-03 11:45 | HP ---
[facility] Rehab Assess/Revision - Admission History Admitted to Rehab from: Y [facility] Jan Date of Admission to Rehab: 01/03/2018 - Vital signs Vital Signs: NOTED; STABLE. - Findings Detox History & Physical reviewed: Yes Concur with findings: Yes Comments/Additional Findings: PATIENT'S MEDICAL / MEDICATION HISTORY REVIEWED PRIOR TO DISCAHRGE FROM DETOX UNIT. PATIENT WAS DISCHARGED FROM DETOX UNIT TO BE TAKEN TO REHAB UNIT IN STABLE MEDICAL CONDITION. Inpatient Rehab Admission - Initial Determination Are CD services needed?: Yes Free of communicable disease: Yes Not in need of hospitalization: Yes - Rehab Admission Criteria Previous failed treatment: Yes Comorbidities: Yes Patient is meeting Inpatient Rehab admission criteria:: Yes
--- NOTE | 2018-01-03 13:45 | HP ---
Psychiatrist Admission - Data Date of interview: 01/03/18 Admission source: 3N Identifying data: This is the second [facility] admission for this 32 years old single male, father of a one year old daughter, unemployed with no source of income, homeless Medical History: Significant for anemia, drug-related seizure, crohn's disease and history of surgery for bowell resection in 2011 for crohn's and appendectomy in 2011. Smokes 10 cigarettes daily Psychiatric History: Patient reports that his first psychiatric contact was while on medical floor due to his Crohn's flare up. He was diadgnosed with anxiety and recommended Ativan. Claims that he stopped taking Ativan following his discharge due to addictive properties of medication. In November 2016 while admitted to inpatient rehab in this facility, he was prescribed Buspar 5 mg po TID for anxiety and Remeron for insomnia. He was referred to [facility] for long [facility] residential tretment on discharge. There he saw a psychiatrist who weaned him off Buspar and he did very well off it. He saw BENNY Elliott on 12/29/17 while in detox and was prescribed Buspar 10 mg po BID and Ambien 10 mg po HS. Told expert medical writer that his anxiety has to do with drug use. Denies previous psychiatric hospitalization or suicidal attempt. At present, reports feeling depressed, anxious and sleeping poorly Physical/Sexual Abuse/Trauma History: Denies history of sexual, physical and verbal abuse as well as DV relationship Additional Comment: Denies legal issue Allergies/Adverse Reactions: Allergies Allergy/AdvReac Type Severity Reaction Status Date / Time Sulfa (Sulfonamide Allergy Intermediate Rash Verified 12/29/17 12:03 Antibiotics) Date of last physical exam: 12/29/17 Concur with the findings of this exam: Yes - Substance Abuse/Tx History Hx Alcohol Use: Yes Hx Substance Use: Yes Substance Use Type: Alcohol (Started drinking alcohol at age 24, consumes one pint of vodka daily. Last drank on 12/27/17), Cocaine (Started using cocaine at age 29, consumes $40 worth daily. Last used on 12/28/17), Heroin (Started using heroin at age 25, consumes 1-2 grams daily. Last used on 12/28/17), Marijuana ( Started smoking marijuana at age 20, consumes $20 worth daily. Last smoked on 12/28/17), Tranquilizers (Started using xanax at age 28, consumes 6-8 mg daily. Last used on 12/26/17) Hx Substance Use Treatment: Yes (6 previous inpt detox & one inpt admissions @ [facility]) Mental Status Exam - Mental Status Exam Alert and Oriented to: Time, Place, Person Cognitive Function: Fair Patient Appearance: Well Groomed Mood: Depressed, Anxious Affect: Appropriate Speech Pattern: Clear Voice Loudness: Normal Thought Process: Intact, Goal Oriented Thought Disorder: Not Present Hallucinations: Denies Suicidal Ideation: Denies Homicidal Ideation: Denies Insight/Judgement: Fair Sleep: Poorly Appetite: Fair Muscle strength/Tone: Normal Gait/Station: Normal Psychiatric Findings - Problem List ([place] 1, 2,3) (1) Alcohol dependence Current Visit: No Status: Acute (2) Opioid dependence Current Visit: No Status: Acute (3) Sedative hypnotic or anxiolytic dependence Current Visit: No Status: Acute (4) Cocaine dependence Current Visit: No Status: Acute Qualifiers: Substance use status: uncomplicated Qualified Code(s): F14.20 - Cocaine dependence, uncomplicated (5) Nicotine dependence Current Visit: No Status: Chronic Qualifiers: Nicotine product type: cigarettes Substance use status: in withdrawal Qualified Code(s): F17.213 - Nicotine dependence, cigarettes, with withdrawal (6) Substance induced mood disorder Current Visit: Yes Status: Acute (7) Substance-induced sleep disorder Current Visit: Yes Status: Acute (8) Anemia Current Visit: No Status: Chronic Qualifiers: Anemia type: unspecified type Qualified Code(s): D64.9 - Anemia, unspecified (9) Crohns disease Current Visit: No Status: Chronic Qualifiers: Gastrointestinal tract location: small intestine Digestive disease complication type: unspecified complication Qualified Code(s): K50.019 - Crohn 's disease of small intestine with unspecified complications (10) Drug withdrawal seizure Current Visit: No Status: Suspected Qualifiers: Complication of substance-induced condition: with unspecified complication Qualified Code(s): F19.239 - Other psychoactive substance dependence with withdrawal, unspecified; R56.9 - Unspecified convulsions; R56.9 - Unspecified convulsions; R56.9 - Unspecified convulsions; R56.9 - Unspecified convulsions - Initial Treatment Plan Initial Treatment Plan: 1) Continue Buspar 10 mg po BID. 2) Start Belsomra 10 mg po HS prn for insomnia. 3) Monitor progress
[2018-01-03] MEDS: AMOX TR/POT CLAV 875MG/125MG TABLETS (FP) PO SCH (17:34)
[2018-01-03] MEDS: THIAMINE HCL 100 MG TABLET (FP) PO SCH (21:42)
[2018-01-03] MEDS: SUVOREXANT 10 MG TABLET PO PRN (21:42)
[2018-01-03] MEDS: busPIRone HCL 10 MG TABLET (FP) PO SCH (21:42)
[2018-01-04] MEDS: AMOX TR/POT CLAV 875MG/125MG TABLETS (FP) PO SCH ×2 (07:13→17:04)
[2018-01-04] MEDS: PRENATAL VITAMINS W/ FOLIC ACID TABLET (FP) PO SCH (10:05)
[2018-01-04] MEDS: NICOTINE 21 MG/24 HOURS TOPICAL PATCH TD SCH (10:05)
[2018-01-04] MEDS: busPIRone HCL 10 MG TABLET (FP) PO SCH ×2 (10:05→21:41)
[2018-01-04] MEDS: cloNIDine HCL 0.1 MG TABLET PO SCH ×2 (15:19→21:42)
[2018-01-04] MEDS: hydrOXYzine PAMOATE 25 MG CAPSULE (FP) PO SCH ×2 (18:00→23:32)
[2018-01-04] MEDS: SUVOREXANT 10 MG TABLET PO PRN (21:41)
[2018-01-04] MEDS: THIAMINE HCL 100 MG TABLET (FP) PO SCH (21:41)
[2018-01-05] MEDS: hydrOXYzine PAMOATE 25 MG CAPSULE (FP) PO SCH ×3 (06:26→18:03)
[2018-01-05] MEDS: AMOX TR/POT CLAV 875MG/125MG TABLETS (FP) PO SCH ×2 (07:51→18:03)
[2018-01-05] MEDS: cloNIDine HCL 0.1 MG TABLET PO SCH ×2 (10:17→21:27)
[2018-01-05] MEDS: PRENATAL VITAMINS W/ FOLIC ACID TABLET (FP) PO SCH (10:17)
[2018-01-05] MEDS: busPIRone HCL 10 MG TABLET (FP) PO SCH ×2 (10:17→21:28)
[2018-01-05] MEDS: NICOTINE 21 MG/24 HOURS TOPICAL PATCH TD SCH (10:17)
[2018-01-05] MEDS: NICOTINE POLACRILEX 2 MG GUM BUC PRN ×3 (10:19→21:30)
[2018-01-05] MEDS ORDERED: SUVOREXANT 5 MG TABLET PO PRN (10:46)
--- NOTE | 2018-01-05 11:44 | PN ---
Psychiatric Progress Note Vital Signs: Vital Signs Period Temp Pulse Resp BP Sys/Lal Pulse Ox Last 24 Hr 97.8 F 85-98 -18 104-113/55-62 Date of Session: 01/05/18 Chief Complaint:: Insomnia HPI: Patient addressing Alcohol, Opoid. Sedative and Cocaine Dependence comorbid with Nicotine Dependence ROS: Anemia, Crohn's Disease, Drug-related seizure Current Medications: Active Medications Generic Name Dose Route Start Last Admin Trade Name Freq PRN Reason Stop Dose Admin Acetaminophen 650 mg 01/03/18 11:42 Tylenol - PO Q4H PRN FEVER Al Hydroxide/Mg Hydroxide 30 ml 01/03/18 11:42 Mylanta Oral Suspension - PO Q6H PRN DYSPEPSIA Amoxicillin/Clavulanate Potassium 1 tab 01/03/18 17:30 01/05/18 07:51 Augmentin - 875mg Tablet PO 01/08/18 17:29 1 tab BID@0800,1730 ELENA Administration Buspirone HCl 10 mg 01/03/18 22:00 01/05/18 10:17 Buspar - PO 10 mg BID ELENA Administration Clonidine 0.1 mg 01/04/18 12:35 01/05/18 10:17 Catapres - PO 0.1 mg BID ELENA Administration Eucalyptus/Menthol/Phenol/Sorbitol 1 each 01/03/18 11:42 Cepastat Lozenge - MM Q4H PRN SORE THROAT Guaifenesin 10 ml 01/03/18 11:42 Robitussin Dm - PO Q6H PRN COUGH Hydrocortisone 1 applic 01/04/18 12:23 Hytone 1% Cream - TP BID PRN FOR ITCHING Hydroxyzine Pamoate 25 mg 01/04/18 18:00 01/05/18 06:26 Vistaril - PO 25 mg Q6HPO ELENA Administration Ibuprofen 400 mg 01/03/18 11:42 Motrin - PO Q6H PRN Pain Level 4-6 Loperamide HCl 4 mg 01/03/18 11:42 Imodium - PO Q6H PRN DIARRHEA Magnesium Citrate 300 ml 01/03/18 11:42 Citroma - PO Q48H PRN CONSTIPATION Magnesium Hydroxide 30 ml 01/03/18 11:42 Milk Of Magnesia - PO DAILY PRN CONSTIPATION Nicotine 21 mg 01/04/18 10:00 01/05/18 10:17 Nicoderm Patch - TD 21 mg DAILY ELENA Administration Nicotine Polacrilex 2 mg 01/03/18 11:42 01/05/18 10:19 Nicorette Gum - BUC 2 mg Q2H PRN Administration NICOTINE REPLACEMENT RX Pseudoephedrine/Triprolidine 1 combo 01/03/18 11:42 Actifed - PO TID PRN NASAL CONGESTION Thiamine HCl 100 mg 01/03/18 22:00 01/04/18 21:41 Vitamin B1 - PO 100 mg HS ELENA Administration Medication(s) Change(s): Increase Belsomra dosage to 15 mg po HS prn for insomnia Current Side Effect: No Lab tests ordered: Yes Lab tests reviewed: Yes Provider note:: Patient reports experiencing difficulty to sleep. Told mortgage underwriter that he has been sleeping poorly despite taking Belsomra 10 mg po at bedtime. Requests that dose of medication be increased Total face to face time:: 15 Mental Status Exam - Mental Status Exam Alert and Oriented to: Time, Place, Person Cognitive Function: Fair Patient Appearance: Well Groomed Mood: Hopeful, Euthymic Affect: Appropriate Patient Behavior: Cooperative Speech Pattern: Clear Voice Loudness: Normal Thought Process: Intact, Goal Oriented Thought Disorder: Not Present Hallucinations: Denies Suicidal Ideation: Denies Homicidal Ideation: Denies Insight/Judgement: Fair Sleep: Poorly Appetite: Good Muscle strength/Tone: Normal Gait/Station: Normal Psychiatric Treatment Plan - Problem List (1) Alcohol dependence Current Visit: No (2) Opioid dependence Current Visit: No (3) Sedative hypnotic or anxiolytic dependence Current Visit: No (4) Cocaine dependence Current Visit: No Qualifiers: Substance use status: uncomplicated Qualified Code(s): F14.20 - Cocaine dependence, uncomplicated (5) Nicotine dependence Current Visit: No Qualifiers: Nicotine product type: cigarettes Substance use status: in withdrawal Qualified Code(s): F17.213 - Nicotine dependence, cigarettes, with withdrawal (6) Substance induced mood disorder Current Visit: Yes (7) Substance-induced sleep disorder Current Visit: Yes (8) Anemia Current Visit: No Qualifiers: Anemia type: unspecified type Qualified Code(s): D64.9 - Anemia, unspecified (9) Crohns disease Current Visit: No Qualifiers: Gastrointestinal tract location: small intestine Digestive disease complication type: unspecified complication Qualified Code(s): K50.019 - Crohn 's disease of small intestine with unspecified complications (10) Drug withdrawal seizure Current Visit: No Qualifiers: Complication of substance-induced condition: with unspecified complication Qualified Code(s): F19.239 - Other psychoactive substance dependence with withdrawal, unspecified; R56.9 - Unspecified convulsions; R56.9 - Unspecified convulsions; R56.9 - Unspecified convulsions; R56.9 - Unspecified convulsions Initial treatment plan: 1) Discontinue Belsomra 10mg po HS prn for insomnia. 2 ) Start Belsomra 15 mg po HS prn for insomnia. 3) Monitor progress
[2018-01-05] MEDS: THIAMINE HCL 100 MG TABLET (FP) PO SCH (21:27)
[2018-01-06] MEDS: hydrOXYzine PAMOATE 25 MG CAPSULE (FP) PO SCH ×3 (06:38→20:31)
[2018-01-06] MEDS: AMOX TR/POT CLAV 875MG/125MG TABLETS (FP) PO SCH ×2 (07:35→17:08)
[2018-01-06] MEDS: busPIRone HCL 10 MG TABLET (FP) PO SCH ×2 (10:24→21:48)
[2018-01-06] MEDS: NICOTINE 21 MG/24 HOURS TOPICAL PATCH TD SCH (10:24)
[2018-01-06] MEDS: cloNIDine HCL 0.1 MG TABLET PO SCH ×2 (10:24→21:51)
[2018-01-06] MEDS: HYDROCORTISONE 1% TOPICAL CREAM 30 GM TUBE TP PRN (17:09)
[2018-01-06] MEDS: NICOTINE POLACRILEX 2 MG GUM BUC PRN (21:49)
[2018-01-06] MEDS: THIAMINE HCL 100 MG TABLET (FP) PO SCH (21:49)
[2018-01-07] MEDS: hydrOXYzine PAMOATE 25 MG CAPSULE (FP) PO SCH ×4 (06:30→23:55)
[2018-01-07] MEDS: AMOX TR/POT CLAV 875MG/125MG TABLETS (FP) PO SCH ×2 (07:48→17:27)
[2018-01-07] MEDS: NICOTINE 21 MG/24 HOURS TOPICAL PATCH TD SCH (10:03)
[2018-01-07] MEDS: busPIRone HCL 10 MG TABLET (FP) PO SCH ×2 (10:03→21:37)
[2018-01-07] MEDS: cloNIDine HCL 0.1 MG TABLET PO SCH ×2 (10:03→21:39)
[2018-01-07] MEDS: NICOTINE POLACRILEX 2 MG GUM BUC PRN ×2 (10:04→13:33)
[2018-01-07] MEDS: THIAMINE HCL 100 MG TABLET (FP) PO SCH (21:37)
[2018-01-07] MEDS: SUVOREXANT 5 MG TABLET PO PRN (21:38)
[2018-01-08] MEDS: hydrOXYzine PAMOATE 25 MG CAPSULE (FP) PO SCH (06:33)
[2018-01-08] MEDS: NICOTINE POLACRILEX 2 MG GUM BUC PRN ×4 (06:51→21:42)
[2018-01-08] MEDS: AMOX TR/POT CLAV 875MG/125MG TABLETS (FP) PO SCH (07:08)
[2018-01-08] MEDS: NICOTINE 21 MG/24 HOURS TOPICAL PATCH TD SCH (10:19)
[2018-01-08] MEDS: busPIRone HCL 10 MG TABLET (FP) PO SCH ×2 (10:20→21:42)
[2018-01-08] MEDS: cloNIDine HCL 0.1 MG TABLET PO SCH ×2 (10:20→21:42)
[2018-01-08] MEDS: hydrOXYzine PAMOATE 50 MG CAPSULE (FP) PO PRN ×2 (12:02→21:41)
[2018-01-08] MEDS: SUVOREXANT 5 MG TABLET PO PRN (21:41)
[2018-01-08] MEDS: THIAMINE HCL 100 MG TABLET (FP) PO SCH (21:41)
[2018-01-09] MEDS ORDERED: SUVOREXANT 10 MG TABLET PO PRN (06:37)
[2018-01-09] MEDS: NICOTINE POLACRILEX 2 MG GUM BUC PRN ×4 (08:03→20:48)
[2018-01-09] MEDS: busPIRone HCL 10 MG TABLET (FP) PO SCH ×2 (10:07→21:48)
[2018-01-09] MEDS: NICOTINE 21 MG/24 HOURS TOPICAL PATCH TD SCH (10:08)
[2018-01-09] MEDS: cloNIDine HCL 0.1 MG TABLET PO SCH ×2 (10:08→21:49)
[2018-01-09] MEDS: hydrOXYzine PAMOATE 50 MG CAPSULE (FP) PO PRN ×2 (10:10→21:47)
[2018-01-09] MEDS ORDERED: SUVOREXANT 5 MG TABLET PO PRN (20:53)
[2018-01-09] MEDS: THIAMINE HCL 100 MG TABLET (FP) PO SCH (21:47)
[2018-01-09] MEDS: SUVOREXANT 5 MG TABLET PO PRN (21:48)
[2018-01-10] MEDS: NICOTINE POLACRILEX 2 MG GUM BUC PRN ×4 (08:15→21:50)
[2018-01-10] MEDS: busPIRone HCL 10 MG TABLET (FP) PO SCH ×2 (10:28→21:48)
[2018-01-10] MEDS: cloNIDine HCL 0.1 MG TABLET PO SCH ×2 (10:29→21:48)
[2018-01-10] MEDS: NICOTINE 21 MG/24 HOURS TOPICAL PATCH TD SCH (10:29)
--- NOTE | 2018-01-10 13:42 | PN ---
[facility] Progress Note Note: Patient requested methadone to help with heroin cravings, reports he feels shaky , chills, sweats,anxious. Reports he has tried Suboxone in the past and did not tolerate the medication well because of condition with Chron's disease and went to the emergency room. ROS: General: anxious, and difficulty sleeping HR: denies no chest pain, palpitations, SOB Neuro: denies dizziness, or paresthesia, + shaky Endo: sweats Musc: denies stiffness or pain Vital Signs Temperature 97.9 F 01/10/18 06:55 Pulse Rate 93 H 01/10/18 09:19 Respiratory Rate 18 01/10/18 06:55 Blood Pressure 126/63 01/10/18 09:19 O2 Sat by Pulse Oximetry (%) Assessment: GENERAL APPEARANCE: Well developed, well nourished, alert and cooperative, and appears to be in no acute distress. CARDIAC: Normal S1 and S2. No S3, S4 or murmurs. Rhythm is regular. No edema LUNGS: Clear to auscultation and percussion without rales, rhonchi, wheezing or diminished breath sounds. MUSKULOSKELETAL: ROM intact spine and extremities. No joint erythema or tenderness. Normal muscular development. Normal gait. NEUROLOGICAL: CN II-XII intact. SKIN: Skin no lesions or eruptions. + dry flaky skin PSYCHIATRIC: + anxious Plan: Continue Clonidine PRN Continue Vistaril PRN Start on low dose of gabapentin 100mg TID Aveno soap fro dry skin Increase fluids, water pitcher by the bedside Continue to monitor
[2018-01-10] MEDS ORDERED: COLLOIDAL OATMEAL 1 BAR EACH TP PRN (13:51)
[2018-01-10] MEDS: GABAPENTIN 100 MG CAPSULE (FP) PO SCH ×2 (15:26→21:48)
[2018-01-10] MEDS: IBUPROFEN 600 MG TABLET (FP) PO PRN (15:26)
[2018-01-10] MEDS: hydrOXYzine PAMOATE 50 MG CAPSULE (FP) PO PRN ×2 (17:53→21:48)
[2018-01-10] MEDS: THIAMINE HCL 100 MG TABLET (FP) PO SCH (21:48)
[2018-01-10] MEDS: SUVOREXANT 5 MG TABLET PO PRN (21:48)
[2018-01-11] MEDS: GABAPENTIN 100 MG CAPSULE (FP) PO SCH ×3 (06:28→21:42)
[2018-01-11] MEDS: NICOTINE POLACRILEX 2 MG GUM BUC PRN ×4 (06:28→21:44)
[2018-01-11] MEDS: NICOTINE 21 MG/24 HOURS TOPICAL PATCH TD SCH (10:24)
[2018-01-11] MEDS: cloNIDine HCL 0.1 MG TABLET PO SCH ×2 (10:24→21:41)
[2018-01-11] MEDS: busPIRone HCL 10 MG TABLET (FP) PO SCH ×2 (10:24→21:42)
[2018-01-11] MEDS: hydrOXYzine PAMOATE 50 MG CAPSULE (FP) PO PRN ×2 (10:25→21:42)
[2018-01-11] MEDS: IBUPROFEN 600 MG TABLET (FP) PO PRN (14:39)
[2018-01-11] MEDS: SUVOREXANT 5 MG TABLET PO PRN (21:42)
[2018-01-11] MEDS: THIAMINE HCL 100 MG TABLET (FP) PO SCH (21:42)
[2018-01-12] MEDS: GABAPENTIN 100 MG CAPSULE (FP) PO SCH ×2 (06:38→15:14)
[2018-01-12] MEDS: busPIRone HCL 10 MG TABLET (FP) PO SCH ×2 (10:03→21:31)
[2018-01-12] MEDS: NICOTINE 21 MG/24 HOURS TOPICAL PATCH TD SCH (10:03)
[2018-01-12] MEDS: HYDROCORTISONE 1% TOPICAL CREAM 30 GM TUBE TP PRN (10:03)
[2018-01-12] MEDS: hydrOXYzine PAMOATE 50 MG CAPSULE (FP) PO PRN (10:03)
[2018-01-12] MEDS: IBUPROFEN 600 MG TABLET (FP) PO PRN (10:04)
[2018-01-12] MEDS: NICOTINE POLACRILEX 2 MG GUM BUC PRN ×2 (10:04→17:48)
--- NOTE | 2018-01-12 12:45 | PN ---
[facility] Progress Note Note: Patient due to be transferred to [facility] next week. States during his last admission at [facility] he was discharged due to staph skin infection on left foot and was treated at [facility]. Admitted to Detox at [facility] for heroine withdrawal on 12/29/17 and now is in Rehab since 01/03/18. Needs medical clearance for upcoming transfer to [facility]. Vital Signs Temperature 98.1 F 01/12/18 06:57 Pulse Rate 96 H 01/12/18 08:55 Respiratory Rate 18 01/12/18 06:57 Blood Pressure 113/65 01/12/18 08:55 O2 Sat by Pulse Oximetry (%) Subj: Alert and oriented x 3. Anxious about discharge. In NAD. Afebrile. Obj: Skin : warm and dry. No open areas or lesions. Car: S1S2.No murmurs or gallops Resp: CTA BL Ext: No edema A/P: Patient medically stable during detox/rehab at [facility] At this time, patient does not have any symptoms of infection that would delay transfer to [facility] Will continue to monitor
[2018-01-12] MEDS ORDERED: CYCLOBENZAPRINE HCL 5 MG TABLET PO SCH (15:00)
[2018-01-12] MEDS: GABAPENTIN 300 MG CAPSULE (FP) PO SCH ×2 (15:14→21:31)
--- NOTE | 2018-01-12 20:07 | PN ---
[facility] Progress Note Note: Patient reports continues with opiod cravings and is having a difficult time with rehab. patient is not a candidate for Suboxone d/t past adverse reaction. Continue current medications Consulted with Dr. Real
[2018-01-12] MEDS: cloNIDine HCL 0.1 MG TABLET PO SCH (21:31)
[2018-01-12] MEDS: THIAMINE HCL 100 MG TABLET (FP) PO SCH (21:31)
[2018-01-12] MEDS: hydrOXYzine PAMOATE 50 MG CAPSULE (FP) PO SCH (21:31)
[2018-01-12] MEDS: SUVOREXANT 5 MG TABLET PO PRN (21:32)
[2018-01-12] MEDS: CYCLOBENZAPRINE HCL 10 MG TABLET (FP) PO PRN (21:34)
[2018-01-13] MEDS: GABAPENTIN 300 MG CAPSULE (FP) PO SCH ×3 (06:24→21:51)
[2018-01-13] MEDS: hydrOXYzine PAMOATE 50 MG CAPSULE (FP) PO SCH ×3 (06:24→21:50)
[2018-01-13 10:04] LABS: BASO % 0.8 % (0-2.0); EOS % 2.7 % (0-4.5); HEMATOCRIT 28.5 % (35.4-49); LYMPH % 20.8 % (8-40); MCHC 31.6 g/dl (32.0-35.9); MEAN CELL VOLUME 60.2 fl (80-96); MEAN PLT VOLUME 7.3 fl (7.5-11.1); MONO % 7.5 % (3.8-10.2); NEUT % 68.2 % (42.8-82.8); PLATELET COUNT 498 K/MM3 (134-434); RBC 4.73 M/mm3 (4.00-5.60)
[2018-01-13 10:05] LABS: MCH 19.1 pg (25.7-33.7)
[2018-01-13] MEDS: NICOTINE 21 MG/24 HOURS TOPICAL PATCH TD SCH (10:18)
[2018-01-13] MEDS: busPIRone HCL 10 MG TABLET (FP) PO SCH ×2 (10:18→21:50)
[2018-01-13] MEDS: cloNIDine HCL 0.1 MG TABLET PO SCH ×3 (10:19→21:50)
[2018-01-13] MEDS: CYCLOBENZAPRINE HCL 10 MG TABLET (FP) PO PRN ×2 (10:27→21:50)
[2018-01-13] MEDS: NICOTINE POLACRILEX 2 MG GUM BUC PRN ×3 (10:28→21:51)
[2018-01-13] MEDS: THIAMINE HCL 100 MG TABLET (FP) PO SCH (21:50)
[2018-01-13] MEDS: SUVOREXANT 5 MG TABLET PO PRN (21:51)
[2018-01-14] MEDS: GABAPENTIN 300 MG CAPSULE (FP) PO SCH ×3 (06:27→21:23)
[2018-01-14] MEDS: hydrOXYzine PAMOATE 50 MG CAPSULE (FP) PO SCH ×3 (06:27→21:23)
[2018-01-14] MEDS: NICOTINE 21 MG/24 HOURS TOPICAL PATCH TD SCH (10:11)
[2018-01-14] MEDS: cloNIDine HCL 0.1 MG TABLET PO SCH ×2 (10:11→21:24)
[2018-01-14] MEDS: busPIRone HCL 10 MG TABLET (FP) PO SCH ×2 (10:11→21:24)
[2018-01-14] MEDS: IBUPROFEN 600 MG TABLET (FP) PO PRN (10:12)
[2018-01-14] MEDS: NICOTINE POLACRILEX 2 MG GUM BUC PRN (10:13)
[2018-01-14] MEDS: CYCLOBENZAPRINE HCL 10 MG TABLET (FP) PO PRN ×2 (15:14→21:25)
[2018-01-14] MEDS: THIAMINE HCL 100 MG TABLET (FP) PO SCH (21:24)
[2018-01-14] MEDS: SUVOREXANT 5 MG TABLET PO PRN (21:25)
[2018-01-15] MEDS: GABAPENTIN 300 MG CAPSULE (FP) PO SCH ×3 (06:25→21:40)
[2018-01-15] MEDS: hydrOXYzine PAMOATE 50 MG CAPSULE (FP) PO SCH ×3 (06:25→21:40)
[2018-01-15] MEDS ORDERED: SUVOREXANT 10 MG TABLET PO PRN (06:28)
[2018-01-15] MEDS: NICOTINE 21 MG/24 HOURS TOPICAL PATCH TD SCH (10:04)
[2018-01-15] MEDS: cloNIDine HCL 0.1 MG TABLET PO SCH ×2 (10:04→21:40)
[2018-01-15] MEDS: busPIRone HCL 10 MG TABLET (FP) PO SCH ×2 (10:04→21:40)
[2018-01-15] MEDS: IBUPROFEN 600 MG TABLET (FP) PO PRN (10:05)
[2018-01-15] MEDS: CYCLOBENZAPRINE HCL 10 MG TABLET (FP) PO PRN ×2 (13:11→21:41)
[2018-01-15] MEDS: NICOTINE POLACRILEX 2 MG GUM BUC PRN (13:12)
[2018-01-15] MEDS: THIAMINE HCL 100 MG TABLET (FP) PO SCH (21:40)
[2018-01-15] MEDS: SUVOREXANT 5 MG TABLET PO PRN (21:42)
[2018-01-16] MEDS: hydrOXYzine PAMOATE 50 MG CAPSULE (FP) PO SCH ×3 (06:05→21:43)
[2018-01-16] MEDS: GABAPENTIN 300 MG CAPSULE (FP) PO SCH ×3 (06:05→21:44)
[2018-01-16] MEDS: CYCLOBENZAPRINE HCL 10 MG TABLET (FP) PO PRN ×2 (10:29→21:44)
[2018-01-16] MEDS: busPIRone HCL 10 MG TABLET (FP) PO SCH ×2 (10:29→21:44)
[2018-01-16] MEDS: cloNIDine HCL 0.1 MG TABLET PO SCH ×2 (10:29→21:43)
[2018-01-16] MEDS: NICOTINE 21 MG/24 HOURS TOPICAL PATCH TD SCH (10:30)
[2018-01-16] MEDS: IBUPROFEN 600 MG TABLET (FP) PO PRN (14:28)
[2018-01-16] MEDS: NICOTINE POLACRILEX 2 MG GUM BUC PRN (14:29)
[2018-01-16] MEDS ORDERED: PT OWN MED DRAWER 7, Y5N ONE (16:17)
[2018-01-16] MEDS: THIAMINE HCL 100 MG TABLET (FP) PO SCH (21:42)
[2018-01-16] MEDS: SUVOREXANT 5 MG TABLET PO PRN (21:44)
[2018-01-17] MEDS: GABAPENTIN 300 MG CAPSULE (FP) PO SCH ×3 (06:28→21:48)
[2018-01-17] MEDS: hydrOXYzine PAMOATE 50 MG CAPSULE (FP) PO SCH ×3 (06:28→21:48)
[2018-01-17] MEDS: busPIRone HCL 10 MG TABLET (FP) PO SCH ×2 (10:21→21:47)
[2018-01-17] MEDS: cloNIDine HCL 0.1 MG TABLET PO SCH ×2 (10:21→21:47)
[2018-01-17] MEDS: NICOTINE 21 MG/24 HOURS TOPICAL PATCH TD SCH (10:21)
[2018-01-17] MEDS: CYCLOBENZAPRINE HCL 10 MG TABLET (FP) PO PRN ×2 (10:22→21:47)
[2018-01-17] MEDS: NICOTINE POLACRILEX 2 MG GUM BUC PRN ×2 (15:00→18:00)
[2018-01-17] MEDS: THIAMINE HCL 100 MG TABLET (FP) PO SCH (21:47)
[2018-01-17] MEDS: SUVOREXANT 5 MG TABLET PO PRN (21:47)
[2018-01-18] MEDS: hydrOXYzine PAMOATE 50 MG CAPSULE (FP) PO SCH ×3 (06:42→21:44)
[2018-01-18] MEDS: GABAPENTIN 300 MG CAPSULE (FP) PO SCH ×3 (06:42→21:44)
[2018-01-18] MEDS: busPIRone HCL 10 MG TABLET (FP) PO SCH ×2 (10:15→21:44)
[2018-01-18] MEDS: CYCLOBENZAPRINE HCL 10 MG TABLET (FP) PO PRN ×2 (10:17→21:44)
[2018-01-18] MEDS: NICOTINE POLACRILEX 2 MG GUM BUC PRN ×2 (10:18→14:06)
[2018-01-18] MEDS: NICOTINE 21 MG/24 HOURS TOPICAL PATCH TD SCH (10:18)
[2018-01-18] MEDS: cloNIDine HCL 0.1 MG TABLET PO SCH ×2 (10:18→21:44)
[2018-01-18] MEDS: THIAMINE HCL 100 MG TABLET (FP) PO SCH (21:44)
[2018-01-18] MEDS: SUVOREXANT 5 MG TABLET PO PRN (21:45)
[2018-01-19] MEDS ORDERED: SUVOREXANT 5 MG TABLET PO PRN (06:11)
[2018-01-19] MEDS: GABAPENTIN 300 MG CAPSULE (FP) PO SCH ×3 (06:30→21:55)
[2018-01-19] MEDS: hydrOXYzine PAMOATE 50 MG CAPSULE (FP) PO SCH ×3 (06:30→21:55)
[2018-01-19 07:16] VITALS: TEMP 97.4
--- NOTE | 2018-01-19 10:24 | PN ---
Psychiatric Progress Note Vital Signs: Vital Signs Period Temp Pulse Resp BP Sys/Lal Pulse Ox Last 24 Hr 97.4 F 76-105 -18 109-115/66-72 Date of Session: 01/19/18 Chief Complaint:: Discharge Note HPI: Patient addressing Alcohol, Opioid, Sedative and Cocaine Dependence comorbid with Nicotine Dependence, Substance-Induced Mood Disorder asnd Substance-Induced Sleep Disorder ROS: Anemia, Crohn's disease, Drug withdrwal seizure Current Medications: Active Medications Generic Name Dose Route Start Last Admin Trade Name Freq PRN Reason Stop Dose Admin Acetaminophen 650 mg 01/03/18 11:42 Tylenol - PO Q4H PRN FEVER Al Hydroxide/Mg Hydroxide 30 ml 01/03/18 11:42 Mylanta Oral Suspension - PO Q6H PRN DYSPEPSIA Buspirone HCl 10 mg 01/03/18 22:00 01/18/18 21:44 Buspar - PO 10 mg BID ELENA Administration Clonidine 0.1 mg 01/12/18 22:00 01/18/18 21:44 Catapres - PO 0.1 mg BID ELENA Administration Colloidal Oatmeal 1 applic 01/10/18 13:51 01/10/18 15:25 Aveeno Soap - TP 1 applic DAILY PRN Administration HYGEINE Cyclobenzaprine HCl 10 mg 01/12/18 20:07 01/18/18 21:44 Flexeril - PO 10 mg TID PRN Administration MUSCLE SPASMS Eucalyptus/Menthol/Phenol/Sorbitol 1 each 01/03/18 11:42 Cepastat Lozenge - MM Q4H PRN SORE THROAT Gabapentin 300 mg 01/12/18 15:00 01/19/18 06:30 Neurontin - PO Not Given TID ELENA Guaifenesin 10 ml 01/03/18 11:42 Robitussin Dm - PO Q6H PRN COUGH Hydrocortisone 1 applic 01/04/18 12:23 01/12/18 10:03 Hytone 1% Cream - TP 1 applic BID PRN Administration FOR ITCHING Hydroxyzine Pamoate 50 mg 01/12/18 22:00 01/19/18 06:30 Vistaril - PO Not Given TID ELENA Ibuprofen 600 mg 01/10/18 13:35 01/16/18 14:28 Motrin - PO 600 mg Q8H PRN Administration Pain Level 4-6 Loperamide HCl 4 mg 01/03/18 11:42 Imodium - PO Q6H PRN DIARRHEA Magnesium Citrate 300 ml 01/03/18 11:42 Citroma - PO Q48H PRN CONSTIPATION Magnesium Hydroxide 30 ml 01/03/18 11:42 Milk Of Magnesia - PO DAILY PRN CONSTIPATION Nicotine 21 mg 01/04/18 10:00 01/18/18 10:18 Nicoderm Patch - TD 21 mg DAILY ELENA Administration Nicotine Polacrilex 2 mg 01/03/18 11:42 01/18/18 14:06 Nicorette Gum - BUC 2 mg Q2H PRN Administration NICOTINE REPLACEMENT RX Pseudoephedrine/Triprolidine 1 combo 01/03/18 11:42 Actifed - PO TID PRN NASAL CONGESTION Suvorexant 15 mg 01/19/18 06:11 Belsomra PO HS PRN INSOMNIA Thiamine HCl 100 mg 01/03/18 22:00 01/18/18 21:44 Vitamin B1 - PO 100 mg HS ELENA Administration Trazodone HCl 100 mg 01/19/18 22:00 Desyrel - PO HS ELENA Current Side Effect: No Lab tests ordered: Yes Lab tests reviewed: Yes Provider note:: Patient will complete this program on 01/20/18. He has met his treatment goals and will continue to address his issues in fpc residential treatment at [facility]. He verbalized understanding of the negative consequences of his addiction and told marketing copywriter that from his participation in this program, he has learned that he has to trust the process and take it a day at a time. He responded well to Buspar 10 mg po BID, Trazadone 100 mg po HS and Belsomra as needed> Script for Buspar and Trazadone will electronically be transmitted to [facility] at [address] [place] [address]. He is stable for discharge on 01/20/18 Total face to face time:: 35 Mental Status Exam - Mental Status Exam Alert and Oriented to: Time, Place, Person Cognitive Function: Fair Patient Appearance: Well Groomed Mood: Hopeful, Euthymic Affect: Appropriate Patient Behavior: Cooperative Speech Pattern: Clear Voice Loudness: Normal Thought Process: Intact, Goal Oriented Thought Disorder: Not Present Hallucinations: Denies Suicidal Ideation: Denies Homicidal Ideation: Denies Insight/Judgement: Fair Sleep: Fair Appetite: Good Muscle strength/Tone: Normal Gait/Station: Normal Psychiatric Treatment Plan - Problem List (1) Alcohol dependence Current Visit: No (2) Opioid dependence Current Visit: No (3) Sedative hypnotic or anxiolytic dependence Current Visit: No (4) Cocaine dependence Current Visit: No Qualifiers: Substance use status: uncomplicated Qualified Code(s): F14.20 - Cocaine dependence, uncomplicated (5) Nicotine dependence Current Visit: No Qualifiers: Nicotine product type: cigarettes Substance use status: in withdrawal Qualified Code(s): F17.213 - Nicotine dependence, cigarettes, with withdrawal (6) Substance induced mood disorder Current Visit: Yes (7) Substance-induced sleep disorder Current Visit: Yes (8) Anemia Current Visit: No Qualifiers: Anemia type: unspecified type Qualified Code(s): D64.9 - Anemia, unspecified (9) Crohns disease Current Visit: No Qualifiers: Gastrointestinal tract location: small intestine Digestive disease complication type: unspecified complication Qualified Code(s): K50.019 - Crohn 's disease of small intestine with unspecified complications (10) Drug withdrawal seizure Current Visit: No Qualifiers: Complication of substance-induced condition: with unspecified complication Qualified Code(s): F19.239 - Other psychoactive substance dependence with withdrawal, unspecified; R56.9 - Unspecified convulsions; R56.9 - Unspecified convulsions; R56.9 - Unspecified convulsions; R56.9 - Unspecified convulsions Initial treatment plan: Patient will be discharged tomorrow and refered to [facility] For fpc residential treatment
[2018-01-19] MEDS: busPIRone HCL 10 MG TABLET (FP) PO SCH ×2 (10:40→21:55)
[2018-01-19] MEDS: NICOTINE 21 MG/24 HOURS TOPICAL PATCH TD SCH (10:40)
[2018-01-19] MEDS: cloNIDine HCL 0.1 MG TABLET PO SCH ×2 (10:40→21:55)
[2018-01-19] MEDS: CYCLOBENZAPRINE HCL 10 MG TABLET (FP) PO PRN (10:41)
[2018-01-19] MEDS: NICOTINE POLACRILEX 2 MG GUM BUC PRN ×2 (10:42→13:52)
[2018-01-19] MEDS: THIAMINE HCL 100 MG TABLET (FP) PO SCH (21:55)
[2018-01-19] MEDS ORDERED: traZODone HCL 100 MG TABLET (FP) PO SCH (22:00)
[2018-01-20] MEDS: GABAPENTIN 300 MG CAPSULE (FP) PO SCH (06:23)
[2018-01-20] MEDS: hydrOXYzine PAMOATE 50 MG CAPSULE (FP) PO SCH (06:23)
[2018-01-20 07:30] VITALS: BP 95/66; PULSE 77
== END 2018-01-20 09:19 | disposition home or self-care (01) | DRG 772 ==
LOC: YASAS 11:26 → Y3W 11:27
PROVIDERS: ADMIT Psychiatry & Neurology Psychiatry; ATTEND Psychiatry & Neurology Psychiatry
PROC: HZ42ZZZ Group Counseling for Substance Abuse Treatment, Cognitive-Behavioral (ICD-10-PCS; principal; 2018-01-03)
DX: F11.23 Opioid dependence with withdrawal (principal); F13.20 Sedative, hypnotic or anxiolytic dependence, uncomplicated; F10.20 Alcohol dependence, uncomplicated; F14.20 Cocaine dependence, uncomplicated; F17.213 Nicotine dependence, cigarettes, with withdrawal; F19.24 Other psychoactive substance dependence with psychoactive substance-induced mood disorder; F19.282 Other psychoactive substance dependence with psychoactive substance-induced sleep disorder; K50.019 Crohn's disease of small intestine with unspecified complications; G40.509 Epileptic seizures related to external causes, not intractable, without status epilepticus; R56.9 Unspecified convulsions
CPT/HCPCS: 36415; 85025; J0735